=== PATIENT | female | born 1990 | race African-American/Black ===

== ENCOUNTER 2016-10-08 00:22 | Emergency (ER) | payer MEDICAID ==
--- NOTE | 2016-10-08 02:43 | ER Document Report ---
ED GI/ - General Chief Complaint: Abdominal Pain Stated Complaint: ABDOMINAL CRAMPING WITH Time seen by provider: 02:43 Mode of Arrival: Ambulatory Information source: Patient TRAVEL OUTSIDE OF THE [place] IN LAST 30 DAYS: No - HPI Patient complains to provider of: Abdominal pain, Onset: Other - 2-3 weeks Timing/Duration: Gradual, Waxing and waning Quality of pain: Achy, Dull Severity at maximum: Mild Severity in ED: Mild, Moderate Pain Level: 2 Location: Epigastric Vaginal bleeding (Compared to normal period): None Associated symptoms: Nausea Exacerbated by: Denies Relieved by: Denies Similar symptoms previously: Yes Recently seen / treated by doctor: Yes Notes: 10/08/16 03:06 Patient is a 26-year-old female who presents to the emergency room complaining of nausea with epigastric abdominal pain, states she was seen at urgent care approximately 3 weeks ago for this and was told she had a positive test, her symptoms have continued throughout the last few weeks, she did a home test 2 days ago and she said it was a very faint positive, she states she's been having some pinkish colored discharge but no actual vaginal bleeding , patient is a with previous miscarriage occurring at approximately 14 weeks gestation back in May 2016, last menstrual period was August 21 - Related Data Allergies/Adverse Reactions: Penicillins Allergy (Verified 10/08/16 00:27) Nausea Past Medical History - General Information source: Patient - Social History Smoking Status: Never Smoker Family History: CVA, DM, Malignancy - Past Medical History Cardiac Medical History: Reports: Hx Hypertension Denies: Hx Coronary Artery Disease, Hx Heart Attack Pulmonary Medical History: Denies: Hx Asthma, Hx Bronchitis, Hx COPD, Hx Pneumonia Neurological Medical History: Denies: Hx Cerebrovascular Accident, Hx Seizures Renal/ Medical History: Denies: Hx Peritoneal Dialysis Musculoskeltal Medical History: Denies Hx Arthritis, Reports Hx Musculoskeletal Trauma Skin Medical History: Reports Hx Eczema Psychiatric Medical History: Reports: Hx Bipolar Disorder Past Surgical History: Reports: Hx Dilation and Curettage - 2, Hx Gynecologic Surgery - D&C - Immunizations Immunizations up to date: Yes Hx Diphtheria, Pertussis, Tetanus Vaccination: Yes - 2009 Review of Systems - Review of Systems Constitutional: No symptoms reported EENT: No symptoms reported Cardiovascular: No symptoms reported Respiratory: No symptoms reported Gastrointestinal: See HPI Genitourinary: No symptoms reported Female Genitourinary: See HPI Musculoskeletal: No symptoms reported Skin: No symptoms reported Hematologic/Lymphatic: No symptoms reported Neurological/Psychological: No symptoms reported -: Yes All other systems reviewed and negative Physical Exam - Vital signs Vitals: Temp Pulse Resp BP Pulse Ox 97.9 F 63 16 113/95 H 100 10/08/16 00:28 10/08/16 00:28 10/08/16 00:28 10/08/16 00:10/08/16 00:28 Interpretation: Normal - General General appearance: Appears well, Alert - HEENT Head: Normocephalic, Atraumatic Eyes: Normal Pupils: PERRL - Respiratory Respiratory status: No respiratory distress Chest status: Nontender Breath sounds: Normal Chest palpation: Normal - Cardiovascular Rhythm: Regular Heart sounds: Normal auscultation Murmur: No - Abdominal Inspection: Normal Distension: No distension Bowel sounds: Normal Tenderness: Tender - Mild epigastric Organomegaly: No organomegaly - Back Back: Normal, Nontender - Extremities General upper extremity: Normal inspection, Nontender, Normal color, Normal ROM , Normal temperature General lower extremity: Normal inspection, Nontender, Normal color, Normal ROM , Normal temperature, Normal weight bearing. No: Neris's sign - Neurological Neuro grossly intact: Yes Cognition: Normal Orientation: AAOx4 Rubi Coma Scale Eye Opening: Spontaneous [place] Coma Scale Verbal: Oriented [place] Coma Scale Motor: Obeys Commands [place] Coma Scale Total: 15 Speech: Normal Motor strength normal: LUE, RUE, LLE, RLE Sensory: Normal - Psychological Associated symptoms: Normal affect, Normal mood - Skin Skin Temperature: Warm Skin Moisture: Dry Skin Color: Normal Course - Re-evaluation Re-evalutation: 10/08/16 03:45 Patient was informed of her lab results which included a negative serum test, she was advised to follow-up with a primary care provider or return if symptoms worsen, patient acknowledges understanding and agreement with this plan - Vital Signs Vital signs: Temp Pulse Resp BP Pulse Ox 97.9 F 63 16 113/95 H 100 10/08/16 00:28 10/08/16 00:28 10/08/16 00:28 10/08/16 00:28 10/08/16 00:28 - Laboratory Result Diagrams: 10/08/16 02:37 10/08/16 02:37 Laboratory results interpreted by me: 10/08/16 10/08/16 10/08/16 02:37 02:37 02:43 Hgb 11.6 L MCV 73 L MCH 23.2 L MCHC 31.7 L RDW 18.0 H Glucose 113 H Urine Protein 30 H Urine Ketones TRACE H Urine Ascorbic Acid 20 H Discharge - Discharge Clinical Impression: Abdominal pain Qualifiers: Abdominal location: epigastric Qualified Code(s): R10.13 - Epigastric pain Condition: Stable Disposition: HOME, SELF-CARE Instructions: Abdominal Pain ([facility]) Additional Instructions: Follow up with your primary care provider in one to 2 days. Return to the emergency room immediately if symptoms worsen or any additional concerns.
[2016-10-08 03:03] LABS: ABSOLUTE EOSINOPHILS # (AUTO) 0.3 10^3/uL (0.0-0.6); ABSOLUTE LYMPHOCYTES (AUTO) 2.1 10^3/uL (0.5-4.7); ABSOLUTE MONOCYTES (AUTO) 0.5 10^3/uL (0.1-1.4); ABSOLUTE NEUT (AUTO) 2.8 10^3/uL (1.7-8.2); BASOPHILS % (AUTO) 0.8 % (0-2); EOSINOPHILS % (AUTO) 4.7 % (0-6); HEMATOCRIT 36.6 % (36.0-47.0); HEMOGLOBIN 11.6 g/dL (12.0-15.5); HGB HCT DIFFERENCE -1.8; LYMPHOCYTES % (AUTO) 36.8 % (13-45); MEAN CORPUSCULAR HEMOGLOBIN 23.2 pg (27.0-33.4); MEAN CORPUSCULAR HGB CONC 31.7 g/dL (32.0-36.0); MEAN CORPUSCULAR VOLUME 73 fl (80-97); MONOCYTES % (AUTO) 9.4 % (3-13); RED BLOOD COUNT 5.01 10^6/uL (3.72-5.28); SEGMENTED NEUTROPHILS % (AUTO) 48.3 % (42-78); WHITE BLOOD COUNT 5.8 10^3/uL (4.0-10.5)
[2016-10-08 03:14] LABS: ALANINE AMINOTRANSFERASE 37 U/L (9-52); ALBUMIN 3.8 g/dL (3.5-5.0); ALKALINE PHOSPHATASE 82 U/L (38-126); ANION GAP 12 (5-19); ASPARTATE AMINO TRANSFERASE 22 U/L (14-36); BILIRUBIN,TOTAL 0.4 mg/dL (0.2-1.3); BLOOD UREA NITROGEN 13 mg/dL (7-20); CALCIUM 9.4 mg/dL (8.4-10.2); CARBON DIOXIDE 27 mmol/L (22-30); CHLORIDE 103 mmol/L (98-107); CREATININE RESULT 0.66 mg/dL (0.52-1.25); GLUCOSE 113 mg/dL (75-110); LIPASE 140.3 U/L (23-300); SODIUM 142.1 mmol/L (137-145); TOTAL PROTEIN 7.4 g/dL (6.3-8.2)
[2016-10-08 03:14] LABS: APPEARANCE,URINE SLIGHTLY-CLOUDY; BILIRUBIN,URINE NEGATIVE (NEGATIVE); GLUCOSE, URINE NEGATIVE (NEGATIVE); KETONES,URINE TRACE mg/dL (NEGATIVE); LEUKOCYTE ESTERASE,URINE NEGATIVE (NEGATIVE); NITRITE,URINE NEGATIVE (NEGATIVE); PROTEIN,URINE 30 mg/dL (NEGATIVE); UROBILINOGEN,URINE NEGATIVE mg/dL (<2.0)
[2016-10-08 03:58] VITALS: BP 120/64
== END 2016-10-08 03:59 | disposition home or self-care (01) ==
LOC: ER 00:22
DX: R10.13 Epigastric pain (principal); R11.0 Nausea; I10 Essential (primary) hypertension
CPT/HCPCS: 36415; 80053; 81001; 83690; 84702; 85025; 87086; 99284

== ENCOUNTER 2016-10-10 20:31 | Emergency (ER) | payer MEDICAID ==
--- NOTE | 2016-10-10 20:37 | ER Document Report ---
ED Medical Screen (RME) - General Stated Complaint: ABDOMINAL PAIN Time seen by provider: 20:35 Mode of Arrival: Medic Information source: Patient TRAVEL OUTSIDE OF THE [place] IN LAST 30 DAYS: No - HPI Patient complains to provider of: PREG VAGINAL BLEEDING Onset: This morning Onset/Duration: Sudden Quality of pain: Sharp Severity: Moderate Pain Level: 4 Associated Symptoms: Abdominal pain, Vaginal bleeding Exacerbated by: Denies Relieved by: Denies Similar symptoms previously: No Recently seen / treated by doctor: No - 16 WEEKS - Related Data Smoking: Non-smoker Frequency of alcohol use: None Drug Abuse: None Pertinent History: DM Allergies/Adverse Reactions: Penicillins Allergy (Verified 10/08/16 00:27) Nausea Past Medical History - Past Medical History Cardiac Medical History: Reports: Hx Hypertension Denies: Hx Coronary Artery Disease, Hx Heart Attack Pulmonary Medical History: Denies: Hx Asthma, Hx Bronchitis, Hx COPD, Hx Pneumonia Neurological Medical History: Denies: Hx Cerebrovascular Accident, Hx Seizures Renal/ Medical History: Denies: Hx Peritoneal Dialysis Musculoskeltal Medical History: Denies Hx Arthritis, Reports Hx Musculoskeletal Trauma Skin Medical History: Reports Hx Eczema Psychiatric Medical History: Reports: Hx Bipolar Disorder Past Surgical History: Reports: Hx Dilation and Curettage - 2, Hx Gynecologic Surgery - D&C - Immunizations Immunizations up to date: Yes Hx Diphtheria, Pertussis, Tetanus Vaccination: Yes - 2009
[2016-10-10 20:39] VITALS: BP 121/73
[2016-10-10 20:58] LABS: ABSOLUTE EOSINOPHILS # (AUTO) 0.2 10^3/uL (0.0-0.6); ABSOLUTE LYMPHOCYTES (AUTO) 1.7 10^3/uL (0.5-4.7); ABSOLUTE MONOCYTES (AUTO) 0.7 10^3/uL (0.1-1.4); ABSOLUTE NEUT (AUTO) 2.8 10^3/uL (1.7-8.2); BASOPHILS % (AUTO) 0.7 % (0-2); EOSINOPHILS % (AUTO) 4.4 % (0-6); HEMATOCRIT 37.8 % (36.0-47.0); HEMOGLOBIN 11.9 g/dL (12.0-15.5); HGB HCT DIFFERENCE -2.1; LYMPHOCYTES % (AUTO) 30.4 % (13-45); MEAN CORPUSCULAR HGB CONC 31.6 g/dL (32.0-36.0); MEAN CORPUSCULAR VOLUME 73 fl (80-97); MONOCYTES % (AUTO) 12.8 % (3-13); RED CELL DISTRIBUTION WIDTH 18.3 % (11.5-14.0); SEGMENTED NEUTROPHILS % (AUTO) 51.7 % (42-78); WHITE BLOOD COUNT 5.4 10^3/uL (4.0-10.5)
[2016-10-10 21:02] LABS: APPEARANCE,URINE CLEAR; BILIRUBIN,URINE NEGATIVE (NEGATIVE); GLUCOSE, URINE NEGATIVE (NEGATIVE); KETONES,URINE NEGATIVE (NEGATIVE); LEUKOCYTE ESTERASE,URINE NEGATIVE (NEGATIVE); NITRITE,URINE NEGATIVE (NEGATIVE); PROTEIN,URINE NEGATIVE (NEGATIVE); UROBILINOGEN,URINE NEGATIVE mg/dL (<2.0)
[2016-10-10 21:08] LABS: ALANINE AMINOTRANSFERASE 34 U/L (9-52); ALBUMIN 4.5 g/dL (3.5-5.0); ALKALINE PHOSPHATASE 76 U/L (38-126); ANION GAP 13 (5-19); ASPARTATE AMINO TRANSFERASE 23 U/L (14-36); BILIRUBIN,TOTAL 0.5 mg/dL (0.2-1.3); BLOOD UREA NITROGEN 16 mg/dL (7-20); CALCIUM 9.8 mg/dL (8.4-10.2); CARBON DIOXIDE 25 mmol/L (22-30); CHLORIDE 103 mmol/L (98-107); CREATININE RESULT 0.85 mg/dL (0.52-1.25); GLUCOSE 80 mg/dL (75-110); POTASSIUM 4.6 mmol/L (3.6-5.0); SODIUM 140.6 mmol/L (137-145); TOTAL PROTEIN 7.7 g/dL (6.3-8.2)
== END 2016-10-10 21:16 | disposition left against medical advice (07) ==
LOC: ER 20:31
DX: O26.892 Other specified pregnancy related conditions, second trimester (principal); R10.9 Unspecified abdominal pain; O20.9 Hemorrhage in early pregnancy, unspecified; O16.2 Unspecified maternal hypertension, second trimester; Z3A.16 16 weeks gestation of pregnancy; Z53.20 Procedure and treatment not carried out because of patient's decision for unspecified reasons; Z88.0 Allergy status to penicillin
CPT/HCPCS: 36415; 80053; 81001; 84702; 85025; 86900; 86901; 99281

== ENCOUNTER 2016-11-29 09:14 | Emergency (ER) | payer MEDICAID ==
[2016-11-29 09:20] VITALS: BP 113/68
--- NOTE | 2016-11-29 10:11 | ER Document Report ---
ED Skin Rash/Insect Bite/Abscs - General Chief Complaint: Skin Problem Stated Complaint: SKIN PROBLEM Notes: The patient is a 26-year-old female who presents with a pruritic right arm that started after a [facility] resident at her work with scabies grabbed her right arm. Over the past day, she is having increased pruritus. She denies fevers, numbness, tingling, oral involvement or open wounds. TRAVEL OUTSIDE OF THE [place] IN LAST 30 DAYS: No - Related Data Allergies/Adverse Reactions: Penicillins Allergy (Verified 10/08/16 00:27) Nausea Past Medical History - General Information source: Patient - Social History Smoking Status: Never Smoker Frequency of alcohol use: Occasional Drug Abuse: None Family History: CVA, DM, Malignancy Patient has suicidal ideation: No Patient has homicidal ideation: No - Past Medical History Cardiac Medical History: Reports: Hx Hypertension Denies: Hx Coronary Artery Disease, Hx Heart Attack Pulmonary Medical History: Denies: Hx Asthma, Hx Bronchitis, Hx COPD, Hx Pneumonia Neurological Medical History: Denies: Hx Cerebrovascular Accident, Hx Seizures Renal/ Medical History: Denies: Hx Peritoneal Dialysis Musculoskeltal Medical History: Denies Hx Arthritis, Reports Hx Musculoskeletal Trauma Skin Medical History: Reports Hx Eczema Psychiatric Medical History: Reports: Hx Bipolar Disorder Past Surgical History: Reports: Hx Dilation and Curettage - 2, Hx Gynecologic Surgery - D&C - Immunizations Immunizations up to date: Yes Hx Diphtheria, Pertussis, Tetanus Vaccination: Yes - 2009 Review of Systems - Review of Systems Notes: REVIEW OF SYSTEMS: CONSTITUTIONAL: -fevers, -chills EENT: -eye pain, -difficulty swallowing, -nasal congestion CARDIOVASCULAR:-chest pain, -syncope. RESPIRATORY: -cough, -SOB GASTROINTESTINAL: -abdominal pain, - nausea, -vomiting, -diarrhea GENITOURINARY: -dysuria, -hematuria MUSCULOSKELETAL: -back pain, -neck pain SKIN: +pruritic rash HEMATOLOGIC: -easy bruising or bleeding. LYMPHATIC: -swollen, enlarged glands. NEUROLOGICAL: -altered mental status or loss of consciousness, -headache, - neurologic symptoms PSYCHIATRIC: -anxiety, -depression. ALL OTHER SYSTEMS REVIEWED AND NEGATIVE. Physical Exam - Vital signs Vitals: Temp Pulse Resp BP Pulse Ox 98.5 F 89 16 113/68 98 11/29/16 09:18 11/29/16 09:18 11/29/16 09:18 11/29/16 09:18 11/29/16 09:18 - Notes Notes: PHYSICAL EXAMINATION: GENERAL: Well-appearing, well-nourished and in no acute distress. HEAD: Atraumatic, normocephalic. EYES: Pupils equal round and reactive to light, extraocular movements intact, sclera anicteric, conjunctiva are normal. ENT: nares patent, oropharynx clear without exudates. Moist mucous membranes. NECK: Normal range of motion, supple without lymphadenopathy LUNGS: Breath sounds clear to auscultation bilaterally and equal. No wheezes rales or rhonchi. HEART: Regular rate and rhythm without murmurs ABDOMEN: Soft, nontender, normoactive bowel sounds. No guarding, no rebound. No masses appreciated. EXTREMITIES: Normal range of motion, no pitting or edema. No cyanosis. NEUROLOGICAL: Cranial nerves grossly intact. Normal speech, normal gait. Normal sensory, motor, and reflex exams. PSYCH: Normal mood, normal affect. SKIN: Burrowing between right fingers, pruritic papules on arm Course - Re-evaluation Re-evalutation: With recent scabies exposure and pruritus, will treat with permethrin. Instructed patient about use and follow-up with her primary care physician. Given strict return precautions and she understands. - Vital Signs Vital signs: Temp Pulse Resp BP Pulse Ox 98.5 F 89 16 113/68 98 11/29/16 09:18 11/29/16 09:18 11/29/16 09:18 11/29/16 09:18 11/29/16 09:18 Discharge - Discharge Clinical Impression: Scabies exposure Condition: Good Disposition: HOME, SELF-CARE Additional Instructions: Used the permethrin as instructed. Reuse it in one week if the rash does not resolve. Use [id number] cetirizine for any itchiness. Scabies Your exam suggests the presence of scabies, which are microscopic parasites of the skin. These mites lucian through the skin, causing severe itching. The mite can be spread to other persons by skin contact. All clothing, towels, and bedding should be washed in very hot water, set aside for a week, then washed again. You should apply scabies-killing lotion from the neck down, then wash it off after 12 hours. You may need medication for itching, as the itch persists for many days after the mites have been killed. All family members and close personal contacts should be examined. Repeat treatment may be necessary if the infestation is not eliminated with a single treatment. Call the doctor if you develop increasing swelling and redness, red streaks , tender lumps, fever, or drainage from a skin sore. Prescriptions: Permethrin [Acticin 5% Cream 60 gm] 1 applic TP ONCE PRN 2 Days PRN Reason: Referrals: MICHAEL MUNOZ MD [Primary Care Provider] - Follow up as needed
== END 2016-11-29 10:36 | disposition home or self-care (01) ==
LOC: ER 09:14
DX: Z20.7 Contact with and (suspected) exposure to pediculosis, acariasis and other infestations (principal); L29.9 Pruritus, unspecified; I10 Essential (primary) hypertension
CPT/HCPCS: 99283

== ENCOUNTER 2017-01-28 02:05 | Emergency (ER) | payer MEDICAID ==
[2017-01-28 02:30] VITALS: BP 118/74
[2017-01-28 04:19] LABS: APPEARANCE,URINE CLEAR; BILIRUBIN,URINE NEGATIVE (NEGATIVE); GLUCOSE, URINE NEGATIVE (NEGATIVE); KETONES,URINE NEGATIVE (NEGATIVE); LEUKOCYTE ESTERASE,URINE NEGATIVE (NEGATIVE); NITRITE,URINE NEGATIVE (NEGATIVE); PROTEIN,URINE NEGATIVE (NEGATIVE); URINE SPECIFIC GRAVITY 1.033; UROBILINOGEN,URINE NEGATIVE mg/dL (<2.0)
--- NOTE | 2017-01-28 05:30 | ER Document Report ---
ED General - General Chief Complaint: Hemorrhoids Stated Complaint: NAUSEA POSSIBLE HEMORRHOID Time Seen by Provider: 01/28/17 03:08 Notes: Patient is a 27-year-old female who presents with complaint of pain in the rectal area. Patient says that she has had hemorrhoids in the past and this feels maybe this could be a hemorrhoid. This been ongoing for over a week. She first noticed the pain when she was straining to have a bowel movement. No blood. No fevers. Patient's other complaint is that she has had some intermittent nausea for 2 weeks. She is over a month late on menstrual period. She has not checked a test. She has had no dysuria. No abnormal vaginal discharge. No abdominal pain. TRAVEL OUTSIDE OF THE [place] IN LAST 30 DAYS: No - Related Data Allergies/Adverse Reactions: Penicillins Allergy (Verified 10/08/16 00:27) Nausea Past Medical History - Social History Smoking Status: Unknown if Ever Smoked Frequency of alcohol use: None Drug Abuse: None Family History: CVA, DM, Malignancy Patient has suicidal ideation: No Patient has homicidal ideation: No - Past Medical History Cardiac Medical History: Reports: Hx Hypertension Denies: Hx Coronary Artery Disease, Hx Heart Attack Pulmonary Medical History: Denies: Hx Asthma, Hx Bronchitis, Hx COPD, Hx Pneumonia Neurological Medical History: Denies: Hx Cerebrovascular Accident, Hx Seizures Renal/ Medical History: Denies: Hx Peritoneal Dialysis Musculoskeltal Medical History: Denies Hx Arthritis, Reports Hx Musculoskeletal Trauma Skin Medical History: Reports Hx Eczema Psychiatric Medical History: Reports: Hx Bipolar Disorder Past Surgical History: Reports: Hx Dilation and Curettage - 2, Hx Gynecologic Surgery - D&C - Immunizations Immunizations up to date: Yes Hx Diphtheria, Pertussis, Tetanus Vaccination: Yes - 2009 Review of Systems - Review of Systems Notes: My Normal Review Basic REVIEW OF SYSTEMS: CONSTITUTIONAL : Denies fever, chills, or sweats. Denies recent illness. RESPIRATORY: Denies cough, cold, or chest congestion. Denies shortness of breath, difficulty breathing, or wheezing. GASTROINTESTINAL: Denies abdominal pain. Some nausea. Rectal pain GENITOURINARY: Denies difficulty urinating, painful urination, burning, frequency, or blood in urine. MUSCULOSKELETAL: Denies neck or back pain or joint pain or swelling. SKIN: Denies rash or skin lesions. NEUROLOGICAL: Denies altered mental status or loss of consciousness. Denies headache. Denies weakness or paralysis or loss of use of either side. Denies problems with gait or speech. Denies sensory or motor loss. ALL OTHER SYSTEMS REVIEWED AND NEGATIVE. Physical Exam - Vital signs Vitals: Temp Pulse Resp BP Pulse Ox 98.2 F 81 18 118/74 98 01/28/17 02:27 01/28/17 02:01/28/17 02:01/28/17 02:01/28/17 02:27 - Notes Notes: General Appearance: Well nourished, alert, cooperative, no acute distress, no obvious discomfort. Vitals: reviewed, See vital signs table. Eyes: PERRL, EOMI, Conjuctiva clear Lungs: No wheezing, No rales, No rhonci, No accessory muscle use, good air exchange bilaterally. Heart: Normal rate, Regular rythm, No murmur, no rub Abdomen: Normal BS, soft, No rigidity, No abdominal tenderness, No guarding, no rebound, no abdominal masses, no organomegaly Rectal exam: Patient has an anal fissure. She has 1 small hemorrhoid. Hemorrhoid is not thrombosed or bulging. Pain most likely is coming from the fissure. Extremities: strength 5/5 in all extremities, good pulses in all extremities, no swelling or tenderness in the extremities, no edema. Rectal exam: Patient has an anal fissure. Skin: warm, dry, appropriate color, no rash Neuro: speech clear, oriented x 3, normal affect, responds appropriately to questions. Course - Re-evaluation Re-evalutation: 01/28/17 05:25 I went by the patient's room to review her lab results with her. She is no longer in the room. I asked the nurse she is seen here. The nurse has not seen her for a while now as well. I suspect the patient has eloped. I will recheck the room again in 10 minutes to see if the patient has returned. 01/28/17 05:53 Patient has still not returned to the room. I assume the patient has eloped. - Vital Signs Vital signs: Temp Pulse Resp BP Pulse Ox 98.2 F 81 18 118/74 98 01/28/17 02:27 01/28/17 02:01/28/17 02:01/28/17 02:27 01/28/17 02:27 - Laboratory Laboratory results interpreted by me: 01/28/17 04:00 Urine Ascorbic Acid 20 H Discharge - Discharge Clinical Impression: Anal fissure, Nausea Disposition: ELOPED
== END 2017-01-28 05:50 | disposition left against medical advice (07) ==
LOC: ER 02:05
DX: K60.2 Anal fissure, unspecified (principal); R11.0 Nausea; K64.9 Unspecified hemorrhoids; Z53.21 Procedure and treatment not carried out due to patient leaving prior to being seen by health care provider; Z80.9 Family history of malignant neoplasm, unspecified
CPT/HCPCS: 81001; 81025; 99281

== ENCOUNTER 2017-03-17 03:22 | Emergency (ER) | payer MEDICAID ==
[2017-03-17] MEDS ORDERED: ASPIRIN 81 MG TABLET, CHEWABLE PO ONE (04:49)
[2017-03-17 05:18] LABS: ABSOLUTE BASOPHILS # (AUTO) 0.1 10^3/uL (0.0-0.2); ABSOLUTE EOSINOPHILS # (AUTO) 0.2 10^3/uL (0.0-0.6); ABSOLUTE LYMPHOCYTES (AUTO) 1.6 10^3/uL (0.5-4.7); ABSOLUTE MONOCYTES (AUTO) 0.7 10^3/uL (0.1-1.4); ABSOLUTE NEUT (AUTO) 3.9 10^3/uL (1.7-8.2); BASOPHILS % (AUTO) 0.9 % (0-2); EOSINOPHILS % (AUTO) 2.5 % (0-6); HEMATOCRIT 37.9 % (36.0-47.0); HEMOGLOBIN 12.2 g/dL (12.0-15.5); HGB HCT DIFFERENCE -1.3; LYMPHOCYTES % (AUTO) 24.9 % (13-45); MEAN CORPUSCULAR HEMOGLOBIN 23.2 pg (27.0-33.4); MEAN CORPUSCULAR HGB CONC 32.1 g/dL (32.0-36.0); MEAN CORPUSCULAR VOLUME 72 fl (80-97); MONOCYTES % (AUTO) 11.5 % (3-13); RED BLOOD COUNT 5.24 10^6/uL (3.72-5.28); RED CELL DISTRIBUTION WIDTH 18.9 % (11.5-14.0); SEGMENTED NEUTROPHILS % (AUTO) 60.2 % (42-78); WHITE BLOOD COUNT 6.5 10^3/uL (4.0-10.5)
[2017-03-17 05:33] LABS: ALANINE AMINOTRANSFERASE 37 U/L (9-52); ALBUMIN 3.8 g/dL (3.5-5.0); ALKALINE PHOSPHATASE 84 U/L (38-126); ANION GAP 9 (5-19); ASPARTATE AMINO TRANSFERASE 22 U/L (14-36); BILIRUBIN,DIRECT 0.2 mg/dL (0.0-0.4); BILIRUBIN,TOTAL 0.4 mg/dL (0.2-1.3); BLOOD UREA NITROGEN 13 mg/dL (7-20); CALCIUM 9.2 mg/dL (8.4-10.2); CARBON DIOXIDE 25 mmol/L (22-30); CHLORIDE 106 mmol/L (98-107); CREATINE KINASE 133 U/L (30-135); CREATININE RESULT 0.59 mg/dL (0.52-1.25); GLUCOSE 85 mg/dL (75-110); SODIUM 139.6 mmol/L (137-145); TOTAL PROTEIN 7.2 g/dL (6.3-8.2)
[2017-03-17 05:38] LABS: CREATINE KINASE MB 0.42 ng/mL (<4.55)
[2017-03-17 05:43] LABS: TROPONIN I < 0.012 ng/mL
--- NOTE | 2017-03-17 05:56 | RADIOLOGY REPORT (SQ) ---
EXAM DESCRIPTION: CHEST SINGLE VIEW COMPLETED DATE/TIME: 03/17/2017 5:39 am REASON FOR STUDY: chest pain COMPARISON: None. EXAM PARAMETERS: NUMBER OF VIEWS: One view. TECHNIQUE: Single frontal radiographic view of the chest acquired. RADIATION DOSE: NA LIMITATIONS: None. FINDINGS: LUNGS AND PLEURA: No opacities, masses or pneumothorax. No pleural effusion. Moderate kane g volumes. MEDIASTINUM AND HILAR STRUCTURES: No masses. Contour normal. HEART AND VASCULAR STRUCTURES: Heart normal in size. Normal vasculature. BONES: No acute findings. HARDWARE: None in the chest. OTHER: No other significant finding. IMPRESSION: No acute cardiopulmonary findings. TECHNICAL DOCUMENTATION: JOB ID: [id number]
[2017-03-17] MEDS ORDERED: NAPROXEN 250 MG TABLET PO ONE (06:22)
--- NOTE | 2017-03-17 06:24 | ER Document Report ---
ED General - General Chief Complaint: Chest Pain Stated Complaint: CHEST PAIN Time Seen by Provider: 03/17/17 06:10 Mode of Arrival: Ambulatory Information source: Patient Notes: 27-year-old female presents with complaints of sharp chest pain. Patient notes she has been having chest pain intermittently over the past few years, notes that it hurts when she touches her chest. Patient denies any fevers or chills denies any shortness breath difficulty breathing. Patient denies any DVT or PE risk factors TRAVEL OUTSIDE OF THE [place] IN LAST 30 DAYS: No - HPI Onset: Other Onset/Duration: Intermittent Quality of pain: Sharp Severity: Mild Pain Level: 1 Associated symptoms: Chest pain Exacerbated by: Denies Relieved by: Denies Similar symptoms previously: Yes Recently seen / treated by doctor: No - Related Data Allergies/Adverse Reactions: Penicillins Allergy (Verified 10/08/16 00:27) Nausea Past Medical History - Social History Smoking Status: Never Smoker Cigarette use (# per day): No Chew tobacco use (# tins/day): No Smoking Education Provided: No Family History: CVA, DM, Malignancy Patient has suicidal ideation: No Patient has homicidal ideation: No - Past Medical History Cardiac Medical History: Reports: Hx Hypertension Denies: Hx Coronary Artery Disease, Hx Heart Attack Pulmonary Medical History: Denies: Hx Asthma, Hx Bronchitis, Hx COPD, Hx Pneumonia Neurological Medical History: Denies: Hx Cerebrovascular Accident, Hx Seizures Renal/ Medical History: Denies: Hx Peritoneal Dialysis Musculoskeltal Medical History: Denies Hx Arthritis, Reports Hx Musculoskeletal Trauma Skin Medical History: Reports Hx Eczema Psychiatric Medical History: Reports: Hx Bipolar Disorder Past Surgical History: Reports: Hx Dilation and Curettage - 2, Hx Gynecologic Surgery - D&C - Immunizations Immunizations up to date: Yes Hx Diphtheria, Pertussis, Tetanus Vaccination: Yes - 2009 Review of Systems - Review of Systems Notes: REVIEW OF SYSTEMS: CONSTITUTIONAL : Denies fever, chills, or sweats. Denies recent illness. EENT: Denies eye, ear, throat, or mouth pain or symptoms. Denies nasal or sinus congestion or discharge. Denies throat, tongue, or mouth swelling or difficulty swallowing. CARDIOVASCULAR: Admits to sharp chest pain RESPIRATORY: Denies cough, cold, or chest congestion. Denies shortness of breath, difficulty breathing, or wheezing. GASTROINTESTINAL: Denies abdominal pain or distention. Denies nausea, vomiting , or diarrhea. Denies blood in vomitus, stools, or per rectum. Denies black, tarry stools. Denies constipation. GENITOURINARY: Denies difficulty urinating, painful urination, burning, frequency, blood in urine, or discharge. FEMALE GENITOURINARY: Denies vaginal bleeding, heavy or abnormal periods, irregular periods. Denies vaginal discharge or odor. MUSCULOSKELETAL: Denies back or neck pain or stiffness. Denies joint pain or swelling. SKIN: Denies rash, lesions or sores. HEMATOLOGIC : Denies easy bruising or bleeding. LYMPHATIC: Denies swollen, enlarged glands. NEUROLOGICAL: Denies confusion or altered mental status. Denies passing out or loss of consciousness. Denies dizziness or lightheadedness. Denies headache. Denies weakness or paralysis or loss of use of either side. Denies problems with gait or speech. Denies sensory loss, numbness, or tingling. Denies seizures. PSYCHIATRIC: Denies anxiety or stress. Denies depression, suicidal ideation, or homicidal ideation. ALL OTHER SYSTEMS REVIEWED AND NEGATIVE. PHYSICAL EXAMINATION: GENERAL: Well-appearing, well-nourished and in no acute distress. HEAD: Atraumatic, normocephalic. EYES: Pupils equal round and reactive to light, extraocular movements intact, conjunctiva are normal. ENT: Nares patent, oropharynx clear without exudates. Moist mucous membranes. NECK: Normal range of motion, supple without lymphadenopathy LUNGS: Breath sounds clear to auscultation bilaterally and equal. No wheezes rales or rhonchi. HEART: Regular rate and rhythm without murmurs chest pain is easily reproducible on palpation ABDOMEN: Soft, nontender, nondistended abdomen. No guarding, no rebound. No masses appreciated. Female : deferred Musculoskeletal: Normal range of motion, no pitting or edema. No cyanosis. NEUROLOGICAL: Cranial nerves grossly intact. Normal speech, normal gait. Normal sensory, motor exams PSYCH: Normal mood, normal affect. SKIN: Warm, Dry, normal turgor, no rashes or lesions noted. Dictation was performed using [employer] voice recognition software Physical Exam - Vital signs Vitals: Temp Pulse Resp BP Pulse Ox 98.3 F 82 18 109/69 99 03/17/17 03:32 03/17/17 03:32 03/17/17 03:32 03/17/17 03:32 03/17/17 03:32 Course - Re-evaluation Re-evalutation: 03/17/17 11:01 Chest pain is easily reproducible, patient otherwise well-appearing no distress , patient will be treated with anti-inflammatories otherwise well-appearing. Patient notes she has taken Motrin in the past with improvement of her symptoms After performing a Medical Screening Examination, I estimate there is LOW risk for RUPTURED ESOPHAGUS, PNEUMOTHORAX, PULMONARY EMBOLISM, ACUTE CORONARY SYNDROME, OR THORACIC AORTIC DISSECTION, thus I consider the discharge disposition reasonable. I have reevaluated this patient multiple times and no significant life threatening changes are noted. The patient and I have discussed the diagnosis and risks, and we agree with discharging home with close follow-up. We also discussed returning to the Emergency Department immediately if new or worsening symptoms occur. We have discussed the symptoms which are most concerning (e.g., bloody sputum, worsening pain or shortness of breath) that necessitate immediate return. - Vital Signs Vital signs: Temp Pulse Resp BP Pulse Ox 98.3 F 82 17 114/58 L 98 03/17/17 03:32 03/17/17 03:32 03/17/17 07:03 03/17/17 07:03 03/17/17 07:03 - Laboratory Result Diagrams: 03/17/17 05:02 03/17/17 05:02 Laboratory results interpreted by me: 03/17/17 05:02 MCV 72 L MCH 23.2 L RDW 18.9 H - EKG Interpretation by Mn EKG shows normal: Sinus rhythm, [place], Intervals, QRS Complexes, ST-T Waves Discharge - Discharge Clinical Impression: Chest wall pain Condition: Stable Disposition: HOME, SELF-CARE Instructions: Chest Wall Pain ([facility]) Prescriptions: Naproxen 500 mg PO BID #20 tablet Referrals: URIEL PEREZ MD [ACTIVE STAFF] - Follow up in 3-5 days
[2017-03-17 07:12] VITALS: BP 114/58
--- NOTE | 2017-03-17 09:17 | EKG REPORT ---
SEVERITY:- OTHERWISE NORMAL ECG - SINUS ARRHYTHMIA, RATE 64-88 : Confirmed by: Papo Concepcion MD 17-Mar-2017 09:16:43
== END 2017-03-17 07:12 | disposition home or self-care (01) ==
LOC: ER 03:22
DX: R07.89 Other chest pain (principal); I10 Essential (primary) hypertension; Z88.0 Allergy status to penicillin; Z82.49 Family history of ischemic heart disease and other diseases of the circulatory system
CPT/HCPCS: 93005; 99285; 36415; 82553; 82550; 85025; 80053; 84484; 71010; 93010; J3490

== ENCOUNTER 2017-05-18 23:25 | Emergency (ER) | payer SELFPAY ==
[2017-05-18 23:44] VITALS: BP 112/62
[2017-05-19 00:06] LABS: ABSOLUTE EOSINOPHILS # (AUTO) 0.2 10^3/uL (0.0-0.6); ABSOLUTE LYMPHOCYTES (AUTO) 1.7 10^3/uL (0.5-4.7); ABSOLUTE MONOCYTES (AUTO) 0.6 10^3/uL (0.1-1.4); ABSOLUTE NEUT (AUTO) 3.5 10^3/uL (1.7-8.2); BASOPHILS % (AUTO) 0.7 % (0-2); EOSINOPHILS % (AUTO) 3.5 % (0-6); HEMATOCRIT 37.6 % (36.0-47.0); HEMOGLOBIN 12.3 g/dL (12.0-15.5); HGB HCT DIFFERENCE -0.7; LYMPHOCYTES % (AUTO) 27.8 % (13-45); MEAN CORPUSCULAR HGB CONC 32.8 g/dL (32.0-36.0); MEAN CORPUSCULAR VOLUME 76 fl (80-97); MONOCYTES % (AUTO) 10.2 % (3-13); RED BLOOD COUNT 4.93 10^6/uL (3.72-5.28); RED CELL DISTRIBUTION WIDTH 17.8 % (11.5-14.0); SEGMENTED NEUTROPHILS % (AUTO) 57.8 % (42-78)
[2017-05-19 01:01] LABS: APPEARANCE,URINE SLIGHTLY-CLOUDY; BILIRUBIN,URINE NEGATIVE (NEGATIVE); GLUCOSE, URINE NEGATIVE (NEGATIVE); KETONES,URINE NEGATIVE (NEGATIVE); LEUKOCYTE ESTERASE,URINE NEGATIVE (NEGATIVE); NITRITE,URINE NEGATIVE (NEGATIVE); PROTEIN,URINE NEGATIVE (NEGATIVE); URINE SPECIFIC GRAVITY 1.031; UROBILINOGEN,URINE NEGATIVE mg/dL (<2.0)
--- NOTE | 2017-05-19 01:43 | ER Document Report ---
ED GI/ - General Chief Complaint: Vaginal Bleeding Stated Complaint: VAGINAL BLEEDING,WEAKNESS Time Seen by Provider: 05/19/17 01:30 Notes: Patient is a 27-year-old female comes emergency department for chief complaint of heavy vaginal bleeding. She states she has been bleeding for 3 weeks straight. She states she has had irregular periods ever since she had a D&C last year after a miscarriage. She states she is going through about 6 pads daily. She is not on any daily medications. She denies any surgeries otherwise. She denies fever, vomiting, vaginal discharge, STD exposure, she reports some cramping in her abdomen but she denies current abdominal pain. TRAVEL OUTSIDE OF THE [place] IN LAST 30 DAYS: No - Related Data Allergies/Adverse Reactions: Penicillins Allergy (Verified 05/18/17 23:36) Nausea Past Medical History - General Information source: Patient - Social History Smoking Status: Never Smoker Frequency of alcohol use: None Drug Abuse: None Lives with: Family Family History: CVA, DM, Malignancy - Past Medical History Cardiac Medical History: Reports: Hx Hypertension Denies: Hx Coronary Artery Disease, Hx Heart Attack Pulmonary Medical History: Denies: Hx Asthma, Hx Bronchitis, Hx COPD, Hx Pneumonia Neurological Medical History: Denies: Hx Cerebrovascular Accident, Hx Seizures Renal/ Medical History: Denies: Hx Peritoneal Dialysis Musculoskeltal Medical History: Denies Hx Arthritis, Reports Hx Musculoskeletal Trauma Skin Medical History: Reports Hx Eczema Psychiatric Medical History: Reports: Hx Bipolar Disorder Past Surgical History: Reports: Hx Dilation and Curettage - 2, Hx Gynecologic Surgery - D&C - Immunizations Immunizations up to date: Yes Hx Diphtheria, Pertussis, Tetanus Vaccination: Yes - 2009 Review of Systems - Review of Systems Constitutional: No symptoms reported EENT: No symptoms reported Cardiovascular: No symptoms reported Respiratory: No symptoms reported Gastrointestinal: See HPI Genitourinary: See HPI Female Genitourinary: See HPI Musculoskeletal: No symptoms reported Skin: No symptoms reported Hematologic/Lymphatic: No symptoms reported Neurological/Psychological: No symptoms reported Physical Exam - Vital signs Vitals: Temp Pulse Resp BP Pulse Ox 98.6 F 87 18 112/62 98 05/18/17 23:40 05/18/17 23:40 05/18/17 23:40 05/18/17 23:40 05/18/17 23:40 Interpretation: Normal - General General appearance: Appears well, Alert In distress: None - HEENT Head: Normocephalic, Atraumatic Eyes: Normal Pupils: PERRL - Respiratory Respiratory status: No respiratory distress Chest status: Nontender Breath sounds: Normal Chest palpation: Normal - Cardiovascular Rhythm: Regular Heart sounds: Normal auscultation Murmur: No - Abdominal Inspection: Normal Distension: No distension Bowel sounds: Normal Tenderness: Nontender. No: Tender, Guarding Organomegaly: No organomegaly - Back Back: Normal, Nontender - Extremities General upper extremity: Normal inspection, Nontender, Normal color, Normal ROM , Normal temperature General lower extremity: Normal inspection, Nontender, Normal color, Normal ROM , Normal temperature, Normal weight bearing. No: Neris's sign - Neurological Neuro grossly intact: Yes Cognition: Normal Orientation: AAOx4 [place] Coma Scale Eye Opening: Spontaneous [place] Coma Scale Verbal: Oriented Rubi Coma Scale Motor: Obeys Commands Rubi Coma Scale Total: 15 Speech: Normal Motor strength normal: LUE, RUE, LLE, RLE Sensory: Normal - Psychological Associated symptoms: Normal affect, Normal mood - Skin Skin Temperature: Warm Skin Moisture: Dry Skin Color: Normal Course - Re-evaluation Re-evalutation: CBC, chemistry, urinalysis are generally unremarkable. HCG is negative. Patient has a soft abdomen on examination. No tachycardia or hypotension. She does not appear to be in distress. Ultrasound other abnormality. Showing enlarged uterine lining suggestive of either endometrial hyperplasia, neoplasm, or no concerning cysts or signs of torsion. No other concerning abnormalities. I discussed with patient. Patient already is established with [facility]. Discussed close [facility] [facility] [facility] [facility] follow-up, discussed workup in detail. After discussion agreed to place patient on Sprintec to help control her symptoms in the meantime. Discussed with Dr. Acevedo. Patient left without her paperwork or prescription, I spoke to her on the phone , she states she is coming back for them. - Vital Signs Vital signs: Temp Pulse Resp BP Pulse Ox 98.6 F 87 18 112/62 98 05/18/17 23:40 05/18/17 23:40 05/18/17 23:40 05/18/17 23:40 05/18/17 23:40 - Laboratory Result Diagrams: 05/18/17 23:55 05/18/17 23:55 Laboratory results interpreted by me: 05/18/17 05/19/17 23:55 00:40 MCV 76 L MCH 25.0 L RDW 17.8 H Urine Blood SMALL H Discharge - Discharge Clinical Impression: Vaginal bleeding Condition: Stable Disposition: HOME, SELF-CARE Additional Instructions: Your ultrasound shows thickened lining of the uterus, this could be endometrial hyperplasia, worst-case scenario it could be an early cancer form which could develop or even spread. Please follow-up with the referral placed in the next few days to have this further evaluated and treated. Because of your heavy bleeding, I recommend taking the prescribed medication Return to the emergency department for any concerning or worsening symptoms including worsening bleeding, increased pain, fever, passing out, etc. Prescriptions: Norgestimate-Ethinyl Estradiol [Sprintec 28 Day Tablet] 1 each PO ASDIR PRN #56 tablet PRN Reason: Forms: Return to Work Referrals: [facility] [Provider Group] - Follow up in 3-5 days
[2017-05-19 02:08] LABS: ALANINE AMINOTRANSFERASE 32 U/L (9-52); ALKALINE PHOSPHATASE 84 U/L (38-126); ANION GAP 11 (5-19); ASPARTATE AMINO TRANSFERASE 23 U/L (14-36); BILIRUBIN,DIRECT 0.3 mg/dL (0.0-0.4); BILIRUBIN,TOTAL 0.4 mg/dL (0.2-1.3); BLOOD UREA NITROGEN 15 mg/dL (7-20); CALCIUM 9.5 mg/dL (8.4-10.2); CARBON DIOXIDE 26 mmol/L (22-30); CHLORIDE 103 mmol/L (98-107); GLUCOSE 102 mg/dL (75-110); POTASSIUM 4.2 mmol/L (3.6-5.0); SODIUM 140.3 mmol/L (137-145); TOTAL PROTEIN 7.2 g/dL (6.3-8.2)
--- NOTE | 2017-05-19 04:49 | RADIOLOGY REPORT (SQ) ---
EXAM DESCRIPTION: U/S NON OB PEL TV W/DOPPLER COMPLETED DATE/TIME: 05/19/2017 4:29 am REASON FOR STUDY: heavy vaginal bleeding x3 weeks, cramping COMPARISON: None. TECHNIQUE: Dynamic and static grayscale images acquired of the pelvis via transvaginal approach and recorded on PACS. Additional selected color Doppler and spectral images recorded. LIMITATIONS: None. FINDINGS: UTERUS: Measures 8.7 x 5.5 x 4.6 cm. No focal myometrial mass was seen. ENDOMETRIAL STRIPE: The endometrium measures 19 mm in double wall thickness. CERVIX: The cervix measures 2.6 cm in length and it is closed. RIGHT OVARY: The right ovary measures 3.6 x 2.5 x 2.7 cm. Flow by Doppler was shown to the right ova ry. LEFT OVARY: The left ovary measures 3.2 x 2.6 x 2.9 cm. Flow by Doppler was shown to the left ovary. Two anechoic areas adjacent to the left ovary measuring 1.7 x 1.4 x 1.4 cm and 1.7 x 1.6 x 1.3 cm, respectively. FREE FLUID: Trace free pelvic fluid. IMPRESSION: Thickened endometrium, may be secondary to endometrial hyperplasia versus neoplasm. Cor relation with endometrial biopsy recommended. Small cysts at the left adnexa, may represent paraovarian cysts or exophytic ovarian cysts. Trace free pelvic fluid. TECHNICAL DOCUMENTATION: JOB ID: [id number] [place]-64 2010 [employer]- All Rights Reserved
== END 2017-05-19 04:45 | disposition home or self-care (01) ==
LOC: ER 23:25
DX: N93.9 Abnormal uterine and vaginal bleeding, unspecified (principal); R93.8 Abnormal findings on diagnostic imaging of other specified body structures; I10 Essential (primary) hypertension; Z98.890 Other specified postprocedural states; Z88.0 Allergy status to penicillin
CPT/HCPCS: 36415; 76830; 80053; 81001; 81025; 85025; 93976; 99284

== ENCOUNTER 2017-05-30 14:43 | Emergency (ER) | payer SELFPAY ==
[2017-05-30 14:59] VITALS: BP 128/55
== END 2017-05-30 16:50 | disposition left against medical advice (07) ==
LOC: ER 14:43
DX: Z53.9 Procedure and treatment not carried out, unspecified reason (principal); M79.604 Pain in right leg; M79.605 Pain in left leg

== ENCOUNTER 2017-06-18 20:47 | Emergency (ER) | payer SELFPAY ==
[2017-06-18 21:58] LABS: APPEARANCE,URINE SLIGHTLY-CLOUDY; BILIRUBIN,URINE NEGATIVE (NEGATIVE); GLUCOSE, URINE NEGATIVE (NEGATIVE); KETONES,URINE NEGATIVE (NEGATIVE); LEUKOCYTE ESTERASE,URINE NEGATIVE (NEGATIVE); NITRITE,URINE NEGATIVE (NEGATIVE); PROTEIN,URINE 30 mg/dL (NEGATIVE); URINE SPECIFIC GRAVITY 1.026; UROBILINOGEN,URINE NEGATIVE mg/dL (<2.0)
[2017-06-18 21:59] LABS: ABSOLUTE BASOPHILS # (AUTO) 0.1 10^3/uL (0.0-0.2); ABSOLUTE EOSINOPHILS # (AUTO) 0.2 10^3/uL (0.0-0.6); ABSOLUTE LYMPHOCYTES (AUTO) 2.2 10^3/uL (0.5-4.7); ABSOLUTE MONOCYTES (AUTO) 0.6 10^3/uL (0.1-1.4); ABSOLUTE NEUT (AUTO) 3.8 10^3/uL (1.7-8.2); BASOPHILS % (AUTO) 0.8 % (0-2); EOSINOPHILS % (AUTO) 2.6 % (0-6); HEMATOCRIT 35.8 % (36.0-47.0); HEMOGLOBIN 11.7 g/dL (12.0-15.5); HGB HCT DIFFERENCE -0.7; LYMPHOCYTES % (AUTO) 32.2 % (13-45); MEAN CORPUSCULAR HEMOGLOBIN 24.8 pg (27.0-33.4); MEAN CORPUSCULAR HGB CONC 32.7 g/dL (32.0-36.0); MEAN CORPUSCULAR VOLUME 76 fl (80-97); MONOCYTES % (AUTO) 9.1 % (3-13); RED BLOOD COUNT 4.72 10^6/uL (3.72-5.28); RED CELL DISTRIBUTION WIDTH 17.6 % (11.5-14.0); SEGMENTED NEUTROPHILS % (AUTO) 55.3 % (42-78); WHITE BLOOD COUNT 6.9 10^3/uL (4.0-10.5)
== END 2017-06-18 22:10 | disposition left against medical advice (07) ==
LOC: ER 20:47
DX: Z53.21 Procedure and treatment not carried out due to patient leaving prior to being seen by health care provider (principal)
CPT/HCPCS: 36415; 81001; 85025

== ENCOUNTER 2017-11-22 11:42 | Emergency (ER) | payer OTHER ==
--- NOTE | 2017-11-22 12:43 | ER Document Report ---
ED General - General Chief Complaint: Anxiety Stated Complaint: CHEST TIGHTNESS,ANXIOUS Mode of Arrival: Ambulatory Information source: Patient Notes: 27-year-old female presents with complaints of anxiety panic attack and presents with complaints of initial rapid heart rate shortness of breath. Patient notes she is on lorazepam but stress at work was worse. She notes that she felt her heart racing, patient states this feels exactly like her previous panic attacks, when she arrived here symptoms resolved Patient denies any DVT PE risk factors TRAVEL OUTSIDE OF THE [place] IN LAST 30 DAYS: No - HPI Onset: Just prior to arrival Onset/Duration: Sudden Quality of pain: No pain Severity: Mild Pain Level: Denies Associated symptoms: Other Exacerbated by: Denies Relieved by: Denies Similar symptoms previously: No Recently seen / treated by doctor: No - Related Data Allergies/Adverse Reactions: Penicillins Allergy (Verified 06/18/17 21:32) Nausea Past Medical History - Social History Smoking Status: Never Smoker Cigarette use (# per day): No Chew tobacco use (# tins/day): No Smoking Education Provided: No Frequency of alcohol use: Occasional Drug Abuse: None Family History: CVA, DM, Malignancy Patient has suicidal ideation: No Patient has homicidal ideation: No - Past Medical History Cardiac Medical History: Reports: Hx Hypertension Denies: Hx Coronary Artery Disease, Hx Heart Attack Pulmonary Medical History: Denies: Hx Asthma, Hx Bronchitis, Hx COPD, Hx Pneumonia Neurological Medical History: Denies: Hx Cerebrovascular Accident, Hx Seizures Renal/ Medical History: Denies: Hx Peritoneal Dialysis Musculoskeltal Medical History: Denies Hx Arthritis, Reports Hx Musculoskeletal Trauma Skin Medical History: Reports Hx Eczema Psychiatric Medical History: Reports: Hx Bipolar Disorder Past Surgical History: Reports: Hx Dilation and Curettage - 2, Hx Gynecologic Surgery - D&C - Immunizations Immunizations up to date: Yes Hx Diphtheria, Pertussis, Tetanus Vaccination: Yes - 2009 Review of Systems - Review of Systems Notes: REVIEW OF SYSTEMS: CONSTITUTIONAL : Denies fever, chills, or sweats. Denies recent illness. EENT: Denies eye, ear, throat, or mouth pain or symptoms. Denies nasal or sinus congestion or discharge. Denies throat, tongue, or mouth swelling or difficulty swallowing. CARDIOVASCULAR: Denies chest pain. Denies palpitations or racing or irregular heart beat. Denies ankle edema. RESPIRATORY: Denies cough, cold, or chest congestion. Denies shortness of breath, difficulty breathing, or wheezing. GASTROINTESTINAL: Denies abdominal pain or distention. Denies nausea, vomiting , or diarrhea. Denies blood in vomitus, stools, or per rectum. Denies black, tarry stools. Denies constipation. GENITOURINARY: Denies difficulty urinating, painful urination, burning, frequency, blood in urine, or discharge. FEMALE GENITOURINARY: Denies vaginal bleeding, heavy or abnormal periods, irregular periods. Denies vaginal discharge or odor. MUSCULOSKELETAL: Denies back or neck pain or stiffness. Denies joint pain or swelling. SKIN: Denies rash, lesions or sores. HEMATOLOGIC : Denies easy bruising or bleeding. LYMPHATIC: Denies swollen, enlarged glands. NEUROLOGICAL: Denies confusion or altered mental status. Denies passing out or loss of consciousness. Denies dizziness or lightheadedness. Denies headache. Denies weakness or paralysis or loss of use of either side. Denies problems with gait or speech. Denies sensory loss, numbness, or tingling. Denies seizures. PSYCHIATRIC: Admits to anxiety ALL OTHER SYSTEMS REVIEWED AND NEGATIVE. PHYSICAL EXAMINATION: GENERAL: Well-appearing, well-nourished and in no acute distress. HEAD: Atraumatic, normocephalic. EYES: Pupils equal round and reactive to light, extraocular movements intact, conjunctiva are normal. ENT: Nares patent, oropharynx clear without exudates. Moist mucous membranes. NECK: Normal range of motion, supple without lymphadenopathy LUNGS: Breath sounds clear to auscultation bilaterally and equal. No wheezes rales or rhonchi. HEART: Regular rate and rhythm without murmurs ABDOMEN: Soft, nontender, nondistended abdomen. No guarding, no rebound. No masses appreciated. Female : deferred Musculoskeletal: Normal range of motion, no pitting or edema. No cyanosis. NEUROLOGICAL: Cranial nerves grossly intact. Normal speech, normal gait. Normal sensory, motor exams PSYCH: Normal mood, normal affect. SKIN: Vitiligo Dictation was performed using [employer] recognition software Physical Exam - Vital signs Vitals: Temp Pulse Resp BP Pulse Ox 98.7 F 71 18 111/62 100 11/22/17 11:47 11/22/17 11:47 11/22/17 11:47 11/22/17 11:47 11/22/17 11:47 Course - Re-evaluation Re-evalutation: 11/22/17 12:57 Patient's presentation is most consistent with a panic attack, her symptoms have since resolved, patient would like to have a work note which I believe it is appropriate, she otherwise looks well is in no distress will be discharged home with close follow-up After performing a Medical Screening Examination, I estimate there is LOW risk for INTRACRANIAL HEMORRHAGE, ISCHEMIC CVA, MALIGNANT DYSRHYTHMIA, ACUTE CORONARY SYNDROME, MENINGITIS, PULMONARY EMBOLISM, or SEPSIS thus I consider the discharge disposition reasonable. I have reevaluated this patient multiple times and no significant life threatening changes are noted. The patient and I have discussed the diagnosis and risks, and we agree with discharging home with close follow-up with the understanding that symptoms and presentations can change. We also discussed returning to the Emergency Department immediately if new or worsening symptoms occur. We have discussed the symptoms which are most concerning (e.g., changing or worsening pain, weakness, vomiting, fever) that necessitate immediate return. - Vital Signs Vital signs: Temp Pulse Resp BP Pulse Ox 98.7 F 71 18 111/62 100 11/22/17 11:47 11/22/17 11:47 11/22/17 11:47 11/22/17 11:47 11/22/17 11:47 Discharge - Discharge Clinical Impression: Anxiety, Panic attack as reaction to stress Condition: Stable Disposition: HOME, SELF-CARE Instructions: Anxiety ([facility]) Forms: Return to Work
[2017-11-22 13:00] VITALS: BP 139/74
== END 2017-11-22 13:01 | disposition home or self-care (01) ==
LOC: ER 11:42
DX: F43.0 Acute stress reaction (principal); F41.9 Anxiety disorder, unspecified; Z79.899 Other long term (current) drug therapy; L80 Vitiligo; I10 Essential (primary) hypertension; Z88.0 Allergy status to penicillin
CPT/HCPCS: 99283

== ENCOUNTER 2018-01-30 09:16 | Emergency (ER) | payer OTHER ==
--- NOTE | 2018-01-30 09:41 | ER Document Report ---
ED Medical Screen (RME) - General Chief Complaint: Vaginal Bleeding Stated Complaint: ABDOMINAL PAIN/HEADACHE Time Seen by Provider: 01/30/18 09:38 Notes: RAPID MEDICAL EVALUATION DISCLOSURE I have seen this patient as part of a Rapid Medical Evaluation and, if applicable, placed any initially appropriate orders. The patient will be seen and fully evaluated, including a full history and physical exam, by a provider ( in Main ED or Fast Track) when a room becomes available. 28-year-old female here with complaints of vaginal bleeding and lower abdominal cramping ongoing past 2 months. She has bleeding almost every day and it varies from spotting to light bleeding to heavy bleeding. She is does not have a PCP or REHABILITATION PHYSICIAN. She does not know if she could be . She denies lightheadedness shortness of breath. TRAVEL OUTSIDE OF THE [place] IN LAST 30 DAYS: No - Related Data Allergies/Adverse Reactions: Penicillins Allergy (Verified 01/30/18 09:19) Nausea Past Medical History - Past Medical History Cardiac Medical History: Reports: Hx Hypertension Denies: Hx Coronary Artery Disease, Hx Heart Attack Pulmonary Medical History: Denies: Hx Asthma, Hx Bronchitis, Hx COPD, Hx Pneumonia Neurological Medical History: Denies: Hx Cerebrovascular Accident, Hx Seizures Renal/ Medical History: Denies: Hx Peritoneal Dialysis Musculoskeltal Medical History: Denies Hx Arthritis, Reports Hx Musculoskeletal Trauma Skin Medical History: Reports Hx Eczema Psychiatric Medical History: Reports: Hx Bipolar Disorder Past Surgical History: Reports: Hx Dilation and Curettage - 2, Hx Gynecologic Surgery - D&C - Immunizations Immunizations up to date: Yes Hx Diphtheria, Pertussis, Tetanus Vaccination: Yes - 2009 Physical Exam - Vital signs Vitals: Temp Pulse Resp BP Pulse Ox 98.4 F 90 16 125/62 97 01/30/18 09:23 01/30/18 09:23 01/30/18 09:23 01/30/18 09:23 01/30/18 09:23 Course - Vital Signs Vital signs: Temp Pulse Resp BP Pulse Ox 98.4 F 90 16 125/62 97 01/30/18 09:23 01/30/18 09:23 01/30/18 09:23 01/30/18 09:23 01/30/18 09:23
[2018-01-30] MEDS ORDERED: IBUPROFEN 800 MG TABLET PO ONE (10:15)
[2018-01-30] MEDS ORDERED: ONDANSETRON 4 MG TAB.RAPDIS PO ONE (10:15)
[2018-01-30 10:18] LABS: ABSOLUTE EOSINOPHILS # (AUTO) 0.2 10^3/uL (0.0-0.6); ABSOLUTE LYMPHOCYTES (AUTO) 1.5 10^3/uL (0.5-4.7); ABSOLUTE MONOCYTES (AUTO) 0.5 10^3/uL (0.1-1.4); BASOPHILS % (AUTO) 0.8 % (0-2); EOSINOPHILS % (AUTO) 3.5 % (0-6); HEMATOCRIT 38.2 % (36.0-47.0); HEMOGLOBIN 12.3 g/dL (12.0-15.5); LYMPHOCYTES % (AUTO) 28.5 % (13-45); MEAN CORPUSCULAR HEMOGLOBIN 23.5 pg (27.0-33.4); MEAN CORPUSCULAR HGB CONC 32.1 g/dL (32.0-36.0); MEAN CORPUSCULAR VOLUME 73 fl (80-97); MONOCYTES % (AUTO) 9.6 % (3-13); PLATELET COUNT 332 10^3/uL (150-450); RED CELL DISTRIBUTION WIDTH 18.1 % (11.5-14.0); SEGMENTED NEUTROPHILS % (AUTO) 57.6 % (42-78); TOTAL CELLS COUNTED % (AUTO) 100 %; WHITE BLOOD COUNT 5.2 10^3/uL (4.0-10.5)
[2018-01-30 10:32] LABS: RBCS (WET MOUNT) 4+ RBCS SEEN; T.VAGINALIS (WET MOUNT) NO TRICHOMONAS SEEN; WBCS (WET MOUNT) 1+ WBCS SEEN; YEAST (WET MOUNT) NO YEAST SEEN
[2018-01-30 10:43] LABS: ANION GAP 9 (5-19); BLOOD UREA NITROGEN 14 mg/dL (7-20); CALCIUM 9.6 mg/dL (8.4-10.2); CARBON DIOXIDE 28 mmol/L (22-30); CHLORIDE 105 mmol/L (98-107); GLUCOSE 83 mg/dL (75-110); POTASSIUM 4.2 mmol/L (3.6-5.0); SODIUM 142.4 mmol/L (137-145)
--- NOTE | 2018-01-30 10:43 | ER Document Report ---
ED GI/ - General Chief Complaint: Vaginal Bleeding Stated Complaint: ABDOMINAL PAIN/HEADACHE Time Seen by Provider: 01/30/18 09:38 Mode of Arrival: Ambulatory Information source: Patient Notes: 28-year-old female presented ED for complaint of vaginal bleeding with lower pelvic cramping ongoing for 2 months. She states she bleeds almost every day it varies from spotting to heavy bleeding. She states she does not have a PCP or [facility]. She does not know if she is or not. She denies any signs or symptoms of nausea vomiting lightheadedness or shortness of breath. She is alert and oriented walks with a even steady gait. TRAVEL OUTSIDE OF THE [place] IN LAST 30 DAYS: No - HPI Patient complains to provider of: Pelvic pain, Vaginal bleeding Onset: Other - 2 months Timing/Duration: Intermittent Quality of pain: Cramping Severity at maximum: Moderate Severity in ED: Moderate Pain Level: 3 Location: Suprapubic, Pelvis Vaginal bleeding (Compared to normal period): Strap Buckler Machine Menstrual period history: Abnormal LMP: Has been bleeding for the last 2 months Associated symptoms: Other - Pelvic pain and vaginal bleeding Exacerbated by: Denies Relieved by: Denies Similar symptoms previously: Yes Recently seen / treated by doctor: No - Related Data Allergies/Adverse Reactions: Penicillins Allergy (Verified 01/30/18 09:19) Nausea Past Medical History - General Information source: Patient - Social History Smoking Status: Never Smoker Cigarette use (# per day): No Chew tobacco use (# tins/day): No Smoking Education Provided: No Frequency of alcohol use: Occasional Drug Abuse: None Lives with: Family Family History: CVA, DM, Malignancy Patient has suicidal ideation: No Patient has homicidal ideation: No - Past Medical History Cardiac Medical History: Reports: Hx Hypertension Pulmonary Medical History: Reports: None EENT Medical History: Reports: None Neurological Medical History: Reports: None Endocrine Medical History: Reports: None Renal/ Medical History: Reports: None Malignancy Medical History: Reports: None GI Medical History: Reports: None Musculoskeltal Medical History: Reports Hx Musculoskeletal Trauma Skin Medical History: Reports Hx Eczema Psychiatric Medical History: Reports: Hx Bipolar Disorder Traumatic Medical History: Reports: None Infectious Medical History: Reports: None Past Surgical History: Reports: Hx Dilation and Curettage - 2, Hx Gynecologic Surgery - D&C - Immunizations Immunizations up to date: Yes Hx Diphtheria, Pertussis, Tetanus Vaccination: Yes - 2009 Review of Systems - Review of Systems Constitutional: No symptoms reported EENT: No symptoms reported Cardiovascular: No symptoms reported Respiratory: No symptoms reported Gastrointestinal: No symptoms reported Genitourinary: No symptoms reported Female Genitourinary: Vaginal bleeding, Other - Pelvic pain Musculoskeletal: No symptoms reported Skin: No symptoms reported Hematologic/Lymphatic: No symptoms reported Neurological/Psychological: No symptoms reported -: Yes All other systems reviewed and negative Physical Exam - Vital signs Vitals: Temp Pulse Resp BP Pulse Ox 98.4 F 90 16 125/62 97 01/30/18 09:23 01/30/18 09:23 01/30/18 09:23 01/30/18 09:23 01/30/18 09:23 Interpretation: Normal - General General appearance: Appears well, Alert - HEENT Head: Normocephalic, Atraumatic Eyes: Normal Pupils: PERRL - Respiratory Respiratory status: No respiratory distress Chest status: Nontender Breath sounds: Normal Chest palpation: Normal - Cardiovascular Rhythm: Regular Heart sounds: Normal auscultation Murmur: No - Abdominal Inspection: Normal Distension: No distension Bowel sounds: Normal Tenderness: Nontender Organomegaly: No organomegaly - Genitourinary External exam: Normal Speculum exam: Normal Vaginal bleeding: Mild Bimanuel exam: Normal - Back Back: Normal, Nontender - Extremities General upper extremity: Normal inspection, Nontender, Normal color, Normal ROM , Normal temperature General lower extremity: Normal inspection, Nontender, Normal color, Normal ROM , Normal temperature, Normal weight bearing. No: Neris's sign - Neurological Neuro grossly intact: Yes Cognition: Normal Orientation: AAOx4 Rubi Coma Scale Eye Opening: Spontaneous Rubi Coma Scale Verbal: Oriented Rubi Coma Scale Motor: Obeys Commands Rubi Coma Scale Total: 15 Speech: Normal Motor strength normal: LUE, RUE, LLE, RLE Sensory: Normal - Psychological Associated symptoms: Normal affect, Normal mood - Skin Skin Temperature: Warm Skin Moisture: Dry Skin Color: Normal Course - Re-evaluation Re-evalutation: 01/30/18 21:47 Labs and ultrasound discussed with patient before discharge. Patient was given instructions on ovarian cyst. Patient to follow-up with [facility]. Patient verbalized understanding and agreement with treatment plan. - Vital Signs Vital signs: Temp Pulse Resp BP Pulse Ox 98.2 F 78 16 128/52 H 98 01/30/18 13:20 01/30/18 13:20 01/30/18 13:20 01/30/18 13:20 01/30/18 13:20 - Laboratory Result Diagrams: 01/30/18 09:50 01/30/18 09:50 Laboratory results interpreted by me: 01/30/18 01/30/18 09:50 09:50 MCV 73 L MCH 23.5 L RDW 18.1 H Urine Blood LARGE H - Diagnostic Test Radiology reviewed: Image reviewed, Reports reviewed Discharge - Discharge Clinical Impression: Vaginal bleeding, Left ovarian cyst Condition: Stable Disposition: HOME, SELF-CARE Additional Instructions: VAGINAL BLEEDING: You are having an episode of abnormal bleeding. Causes of abnormal vaginal bleeding can include miscarriage or tubal , tumors such as cancer or benign fibroids, medication effects, or hormone imbalance. Testing can eliminate unsuspected , tumors, or infection as a cause. "Dysfunctional uterine bleeding" is due to hormone imbalance, and is especially common at times when the normal cycle is disturbed -- whether by recent , use of control pills or hormones, or impending menopause. If the bleeding is innocent, most commonly a short course of hormones is given to restore the uterus to normal. Sometimes, the normal menstrual cycle corrects itself naturally. Sometimes , brief hormone therapy, or even a D&C is required. Your physician will advise you. Treatment for anemia may be required if bleeding is severe. You should rest and avoid intercourse until the bleeding is controlled. Call the doctor or return for re-examination if you feel faint, have increasing pain, or have a major increase in the amount of bleeding. Ovarian Cyst Your examination shows the presence of an ovarian cyst. This is a ball of fluid attached to the ovary. Ovarian cysts in women of child-bearing age are usually innocent. However, the cyst may cause pain when it grows or bursts. An innocent ovarian cyst will usually go away by itself. When the cyst becomes painful, you should rest. Pain medication may be required. Some women find a hot water bottle soothing. The pain usually resolves within one or two days. After menopause, an ovarian cyst may mean a tumor, and requires more aggressive evaluation -- usually surgery is recommended to remove or biopsy the cyst. A very large cyst requires evaluation at any age. Most cysts (even the innocent ones) require follow-up examination. Call the doctor or return at any time if the pain increases significantly, if you become faint, or if you experience vaginal bleeding. FOLLOW-UP CARE: If you have been referred to a physician for follow-up care, call the physician s office for an appointment as you were instructed or within the next two days. If you experience worsening or a significant change in your symptoms (very heavy bleeding with large clots of blood, passage of tissue, more severe abdominal / pelvic pain or cramping, feeling faint or severe weakness, fever, etc.), notify the physician immediately or return to the Emergency Department at any time for re-evaluation. OBSTETRIC-GYNECOLOGIC (OB-OPERATIONS WELDER) PHYSICIANS IN [place]: [facility] [address] [place] [address] [phone] Prescriptions: Ibuprofen 600 mg PO Q6HP PRN #20 tablet PRN Reason: Prochlorperazine Maleate [Compazine 10 mg Tablet] 10 mg PO Q6HP PRN #10 tablet PRN Reason: Forms: Return to Work
[2018-01-30 10:44] LABS: APPEARANCE,URINE SLIGHTLY-CLOUDY; BILIRUBIN,URINE NEGATIVE (NEGATIVE); COLOR,URINE YELLOW; GLUCOSE, URINE NEGATIVE (NEGATIVE); KETONES,URINE NEGATIVE (NEGATIVE); LEUKOCYTE ESTERASE,URINE NEGATIVE (NEGATIVE); NITRITE,URINE NEGATIVE (NEGATIVE); PROTEIN,URINE NEGATIVE (NEGATIVE); URINE SPECIFIC GRAVITY 1.027; UROBILINOGEN,URINE NEGATIVE mg/dL (<2.0)
[2018-01-30 11:56] LABS: CHLAM PCR NOT DETECTED (NOT DETECT); GON PCR NOT DETECTED (NOT DETECT)
--- NOTE | 2018-01-30 13:07 | RADIOLOGY REPORT (SQ) ---
EXAM DESCRIPTION: U/S NON-OB PELVIS TV W/O DOP COMPLETED DATE/TIME: 01/30/2018 12:53 pm REASON FOR STUDY: pelvic pain and bleeding COMPARISON: OB ultrasound 06/19/2016 Pelvic ultrasound 05/19/2017 TECHNIQUE: Dynamic and static grayscale images acquired of the pelvis via transvaginal approach and recorded on PACS. Additional selected color Doppler and spectral images recorded. LIMITATIONS: None. FINDINGS: UTERUS: Contour normal. No mass. Uterus measures 8 x 5 x 4 cm in size ENDOMETRIAL STRIPE: No focal or generalized thickening. No masses. Endometrial stripe 15 mm in thick ness. CERVIX: No nabothian cysts. Cervix is closed, 3.5 cm in length. RIGHT OVARY AND DOPPLER: Normal size. No worrisome masses. Normal arterial vascular flow without evid ence for torsion. Right ovary is 3.6 x 2.4 x 2.8 cm. LEFT OVARY AND DOPPLER: Normal size. No worrisome masses. Normal arterial vascular flow without evide nce for torsion. Left ovary is 3.9 x 2.8 x 3.4 cm in size with a 1.4 cm follicular cysts. There is an adjacent 1.4 cm para ovarian cyst, similar compared to 06/19/2016 and 05/19/2017. FREE FLUID: None noted. OTHER: No other significant finding. IMPRESSION: No free pelvic fluid. Unremarkable uterus and endometrium Normal size ovaries. Normal ovaries Doppler flow Stable 14 mm left paraovarian cyst TECHNICAL DOCUMENTATION: JOB ID: [id number] [employer]- All Rights Reserved Rev Reading location - IP/workstation name: [email or web address]
[2018-01-30 13:47] VITALS: BP 128/52
== END 2018-01-30 13:47 | disposition home or self-care (01) ==
LOC: ER 09:16
DX: N83.202 Unspecified ovarian cyst, left side (principal); N93.9 Abnormal uterine and vaginal bleeding, unspecified; R10.2 Pelvic and perineal pain; R10.9 Unspecified abdominal pain; R51 Headache; I10 Essential (primary) hypertension
CPT/HCPCS: 99284; 36415; 87210; 85025; 81025; 80048; 81001; 87491; 87591; 76830; S0119

== ENCOUNTER 2018-04-16 12:38 | Emergency (ER) | payer OTHER ==
[2018-04-16 12:44] VITALS: BP 119/69
[2018-04-16] MEDS ORDERED: IBUPROFEN 800 MG TABLET PO ONE (15:01)
--- NOTE | 2018-04-16 15:07 | ER Document Report ---
ED Extremity Problem, Upper - General Chief Complaint: Shoulder Pain Stated Complaint: LEFT SHOULDER PAIN Time Seen by Provider: 04/16/18 14:54 Mode of Arrival: Ambulatory Information source: Patient Notes: 28-year-old female presented ED for complaint of left shoulder pain. She states it has been hurting for 2-3 days that she does not remember any injury to the shoulder. She states it might just be spasming. She states it hurts to raise her arm or to move her shoulder. Patient is alert and oriented respirations regular and unlabored speaking in full sentences and walks with a even steady gait. TRAVEL OUTSIDE OF THE [place] IN LAST 30 DAYS: No - HPI Patient complains to provider of: Left, Shoulder Onset: Other - 2-3 days Where: Home Quality of pain: Burning, Sharp Severity of pain: Intermittent Pain Level: 4 Associated symptoms: None Exacerbated by: Movement, Exertion Relieved by: Rest, Positioning Similar symptoms previously: No - Related Data Allergies/Adverse Reactions: Penicillins Allergy (Verified 01/30/18 09:19) Nausea Past Medical History - General Information source: Patient - Social History Smoking Status: Never Smoker Cigarette use (# per day): No Chew tobacco use (# tins/day): No Smoking Education Provided: No Frequency of alcohol use: Rare Drug Abuse: None Occupation: Customer service Lives with: Family Family History: CVA, DM, Malignancy Patient has suicidal ideation: No Patient has homicidal ideation: No - Past Medical History Cardiac Medical History: Reports: Hx Hypertension Pulmonary Medical History: Reports: None EENT Medical History: Reports: None Neurological Medical History: Reports: None Endocrine Medical History: Reports: None Renal/ Medical History: Reports: None Malignancy Medical History: Reports: None GI Medical History: Reports: None Musculoskeletal Medical History: Reports Hx Musculoskeletal Trauma Skin Medical History: Reports Hx Eczema Psychiatric Medical History: Reports: Hx Bipolar Disorder Traumatic Medical History: Reports: None Infectious Medical History: Reports: None Past Surgical History: Reports: Hx Dilation and Curettage - 2, Hx Gynecologic Surgery - D&C - Immunizations Immunizations up to date: Yes Hx Diphtheria, Pertussis, Tetanus Vaccination: Yes - 2009 Review of Systems - Review of Systems Constitutional: No symptoms reported EENT: No symptoms reported Cardiovascular: No symptoms reported Respiratory: No symptoms reported Gastrointestinal: No symptoms reported Genitourinary: No symptoms reported Female Genitourinary: No symptoms reported Musculoskeletal: Joint pain - Left shoulder pain, Muscle pain, Muscle stiffness. denies: Joint swelling Skin: No symptoms reported Hematologic/Lymphatic: No symptoms reported Neurological/Psychological: No symptoms reported -: Yes All other systems reviewed and negative Physical Exam - Vital signs Vitals: Temp Pulse Resp BP Pulse Ox 98.2 F 96 16 119/69 97 04/16/18 12:42 04/16/18 12:42 04/16/18 12:42 04/16/18 12:42 04/16/18 12:42 Interpretation: Normal - General General appearance: Appears well, Alert - HEENT Head: Normocephalic, Atraumatic Eyes: Normal Pupils: PERRL - Respiratory Respiratory status: No respiratory distress Chest status: Nontender Breath sounds: Normal Chest palpation: Normal - Cardiovascular Rhythm: Regular Heart sounds: Normal auscultation Murmur: No - Abdominal Inspection: Normal Distension: No distension Bowel sounds: Normal Tenderness: Nontender Organomegaly: No organomegaly - Back Back: Normal, Nontender - Extremities General upper extremity: Normal inspection, Nontender, Normal color, Normal ROM , Normal temperature General lower extremity: Normal inspection, Nontender, Normal color, Normal ROM , Normal temperature, Normal weight bearing. No: Neris's sign Shoulder: Tender. No: Abrasion, Deformity, Dislocation, Ecchymosis, Instability , Laceration, Limited ROM - She has pain with range of motion but has full range of motion - Neurological Neuro grossly intact: Yes Cognition: Normal Orientation: AAOx4 [place] Coma Scale Eye Opening: Spontaneous Rubi Coma Scale Verbal: Oriented Rubi Coma Scale Motor: Obeys Commands Rubi Coma Scale Total: 15 Speech: Normal Motor strength normal: LUE, RUE, LLE, RLE Sensory: Normal - Psychological Associated symptoms: Normal affect, Normal mood - Skin Skin Temperature: Warm Skin Moisture: Dry Skin Color: Normal Course - Re-evaluation Re-evalutation: 04/16/18 15:08 Discussed range of motion with patient. Patient was treated with ibuprofen discharged home with instructions for ibuprofen and range of motion to the shoulder. Patient was instructed to follow-up with orthopedics if continues to have pain in the shoulder. - Vital Signs Vital signs: Temp Pulse Resp BP Pulse Ox 98.2 F 96 16 119/69 97 04/16/18 12:42 04/16/18 12:42 04/16/18 12:42 04/16/18 12:42 04/16/18 12:42 Discharge - Discharge Clinical Impression: Pain of left shoulder region Condition: Stable Disposition: HOME, SELF-CARE Additional Instructions: You were seen today for pain in your left shoulder area. You stated you did not have any injury to your left shoulder. You state it hurts to move your left shoulder. Exercise Program for the Shoulder Since the shoulder moves in so many directions, the joint attachment is weak. Muscles provide most of the stability to the shoulder. You must exercise your shoulder to prevent painful instability or stiffening. PASSIVE - These may be begun within a few days of the injury. While standing, lean forward, allowing the arm to hang down towards the floor. Move the arm in small circles while slowly twisting your chest towards and away from the hanging arm. Do this for one minute. ACTIVE - These may be performed when the doctor gives permission. Begin with the arms at the sides. Raise the arms forward (shoulder's width apart) until they reach shoulder level. Then slowly swing both arms back until they are aiming straight out away from each other. Then bring them forward again, and finally, lower them to your sides. Repeat 20 to 30 times. As you improve, put weights in your hands for the exercise. Start with one pound, and work up to 10 pounds. Never use more than is comfortable. Athletes may work up to 30 pounds. USE OF [id number] IBUPROFEN: Ibuprofen (Advil, Nuprin, Medipren, Motrin IB) is a medication for fever and pain control. In addition, it has anti- inflammatory effects which may be beneficial, especially in the treatment of injuries. It's best to take ibuprofen with food. Persons with ulcer disease or allergy to aspirin should notify their physician of this before taking ibuprofen. Ibuprofen can be given every four to six hours, for a total of four doses daily. Age Pain or fever dose Antiinflammatory dose 6-8 yr 200 mg (1 tab) 200 mg (1 tab) 9-11 yr 200 mg (1 tab) 200-400 mg (1-2 tab) 11-14 yr 200-400 mg (1-2 tab) 400 mg (2 tab) 15-adult 400 mg (2 tab) 600 mg (3 tab) Ice Packs Apply ice packs frequently against the painful area. Many different schedules are recommended, such as "20 minutes on, 20 minutes off" or "one hour ice, two hours rest." If you need to work, you may need to go longer between ice treatments. You should plan to have the area ice packed AT LEAST one fourth of the time. The ice should be applied over the wrap, tape, or splint, or over a layer of cloth -- not directly against the skin. Some ice bags have a built-in cloth and can be put directly on the skin. Warm Packs After approximately two days, apply gentle heat (such as a heating pad or hot water bottle) for about 20 to 30 minutes about every two hours -- at least four times daily. Warmth and elevation will help you make a more rapid recovery , and will ease the pain considerably. Do not use HOT heat, and never apply heat for longer than 30 minutes. The continuous heat can invisibly damage skin and muscles -- even when no burn is seen on the surface. Damaged muscles can make you MORE sore. FOLLOW-UP CARE: If you have been referred to a physician for follow-up care, call the physician s office for an appointment as you were instructed or within the next two days. If you experience worsening or a significant change in your symptoms, notify the physician immediately or return to the Emergency Department at any time for re-evaluation. Forms: Return to Work Referrals: [facility] [Provider Group] - Follow up as needed
== END 2018-04-16 15:11 | disposition home or self-care (01) ==
LOC: ER 12:38
DX: M25.512 Pain in left shoulder (principal); I10 Essential (primary) hypertension
CPT/HCPCS: 99283

== ENCOUNTER 2018-04-29 22:26 | Emergency (ER) | payer OTHER ==
[2018-04-30 00:52] LABS: ABSOLUTE BASOPHILS # (AUTO) 0.1 10^3/uL (0.0-0.2); ABSOLUTE EOSINOPHILS # (AUTO) 0.3 10^3/uL (0.0-0.6); ABSOLUTE MONOCYTES (AUTO) 0.7 10^3/uL (0.1-1.4); ABSOLUTE NEUT (AUTO) 4.4 10^3/uL (1.7-8.2); EOSINOPHILS % (AUTO) 3.8 % (0-6); HEMATOCRIT 34.2 % (36.0-47.0); HEMOGLOBIN 11.1 g/dL (12.0-15.5); LYMPHOCYTES % (AUTO) 26.6 % (13-45); MEAN CORPUSCULAR HEMOGLOBIN 23.9 pg (27.0-33.4); MEAN CORPUSCULAR HGB CONC 32.5 g/dL (32.0-36.0); MEAN CORPUSCULAR VOLUME 73 fl (80-97); MONOCYTES % (AUTO) 9.4 % (3-13); PLATELET COUNT 348 10^3/uL (150-450); RED BLOOD COUNT 4.66 10^6/uL (3.72-5.28); SEGMENTED NEUTROPHILS % (AUTO) 59.2 % (42-78); TOTAL CELLS COUNTED % (AUTO) 100 %; WHITE BLOOD COUNT 7.4 10^3/uL (4.0-10.5)
--- NOTE | 2018-04-30 02:03 | ER Document Report ---
ED General - General Chief Complaint: Vaginal Bleeding Stated Complaint: STOMACH PAINS,CRAMPING,VAGINAL BLEEDING Time Seen by Provider: 04/30/18 00:13 Notes: Patient is 28-year-old female presents with complaint of pain in the suprapubic region with some vaginal bleeding. She is unsure if she could be . She says her menstrual period is late. She says her periods usually on time and she does not have heavy bleeding like she does today. No fevers. No vomiting. No diarrhea. She is and sexually monogamous. She says her and her have been having sex without protection and have been somewhat trying to get . No other complaints at this time. TRAVEL OUTSIDE OF THE [place] IN LAST 30 DAYS: No - Related Data Allergies/Adverse Reactions: Penicillins Allergy (Verified 01/30/18 09:19) Nausea Past Medical History - General Last Menstrual Period: 03-13-18 - Social History Smoking Status: Never Smoker Chew tobacco use (# tins/day): No Frequency of alcohol use: Occasional Drug Abuse: None Family History: CVA, DM, Malignancy Patient has suicidal ideation: No Patient has homicidal ideation: No - Past Medical History Cardiac Medical History: Reports: Hx Hypertension Denies: Hx Coronary Artery Disease, Hx Heart Attack Pulmonary Medical History: Denies: Hx Asthma, Hx Bronchitis, Hx COPD, Hx Pneumonia Neurological Medical History: Denies: Hx Cerebrovascular Accident, Hx Seizures Renal/ Medical History: Denies: Hx Peritoneal Dialysis Musculoskeletal Medical History: Denies Hx Arthritis, Reports Hx Musculoskeletal Trauma Skin Medical History: Reports Hx Eczema Psychiatric Medical History: Reports: Hx Bipolar Disorder Past Surgical History: Reports: Hx Dilation and Curettage - 2, Hx Gynecologic Surgery - D&C - Immunizations Immunizations up to date: Yes Hx Diphtheria, Pertussis, Tetanus Vaccination: Yes - 2009 Review of Systems - Review of Systems Notes: My Normal Review Basic REVIEW OF SYSTEMS: CONSTITUTIONAL : Denies fever, chills, or sweats. Denies recent illness. RESPIRATORY: Denies cough, cold, or chest congestion. Denies shortness of breath, difficulty breathing, or wheezing. GASTROINTESTINAL: Denies abdominal pain. Denies nausea, vomiting, or diarrhea. GENITOURINARY: Denies difficulty urinating, painful urination, burning, frequency, or blood in urine. FEMALE GENITOURINARY: Vaginal bleeding. MUSCULOSKELETAL: Denies neck or back pain or joint pain or swelling. SKIN: Denies rash or skin lesions. NEUROLOGICAL: Denies altered mental status or loss of consciousness. Denies headache. Denies weakness or paralysis or loss of use of either side. Denies problems with gait or speech. Denies sensory or motor loss. ALL OTHER SYSTEMS REVIEWED AND NEGATIVE. Physical Exam - Vital signs Vitals: Temp Pulse Resp BP Pulse Ox 98.6 F 92 18 131/75 H 100 04/29/18 23:10 04/29/18 23:10 04/29/18 23:10 04/29/18 23:10 04/29/18 23:10 - Notes Notes: General Appearance: Well nourished, alert, cooperative, no acute distress, no obvious discomfort. Vitals: reviewed, See vital signs table. Head: no swelling or tenderness to the head Eyes: PERRL, EOMI, Conjuctiva clear Mouth: No decreasd moisture Lungs: No wheezing, No rales, No rhonci, No accessory muscle use, good air exchange bilaterally. Heart: Normal rate, Regular rythm, No murmur, no rub Abdomen: Normal BS, soft, No rigidity, No abdominal tenderness, No guarding, no rebound, no abdominal masses, no organomegaly Pelvic Exam: Normal external genitalia. Moderate amount of blood in vaginal vault. One small clot removed. Cervical os is closed. Normal discharge. Exam performed with female value engineer, Daisy BORJAS. Extremities: strength 5/5 in all extremities, good pulses in all extremities, no swelling or tenderness in the extremities, no edema. Skin: warm, dry, appropriate color, no rash Neuro: speech clear, oriented x 3, normal affect, responds appropriately to questions. Course - Re-evaluation Re-evalutation: 04/30/18 04:26 Patient's ultrasound shows a thickened endometrium and her level is only 6. I suspect that she had a very early that did not progress and now she is having a miscarriage. I discussed this with the patient. I informed her that it is possible she has a very early with bleeding however performed I still suspect this will call and miscarriage. I told her that she should have a repeat hCG level in 3-4 days. Informed her follow-up with her doctor for this or she can return to the ER. Encouraged her return to ER immediately if she has severe pain, occulta breathing, heavy bleeding, lightheadedness or feels unwell. Patient agrees with plan will be discharged home. Dictation of this chart was performed using voice recognition software; therefore, there may be some unintended grammatical errors. - Vital Signs Vital signs: Temp Pulse Resp BP Pulse Ox 98.6 F 92 18 131/75 H 100 04/29/18 23:10 04/29/18 23:10 04/29/18 23:10 04/29/18 23:10 04/29/18 23:10 - Laboratory Result Diagrams: 04/30/18 00:40 Laboratory results interpreted by me: 04/30/18 04/30/18 04/30/18 00:40 00:40 00:40 Hgb 11.1 L Hct 34.2 L MCV 73 L MCH 23.9 L RDW 20.0 H Serum HCG, Qual POSITIVE H Beta HCG, Quant 6.46 H Discharge - Discharge Clinical Impression: Vaginal bleeding Qualifiers: Weeks of gestation: less than 8 weeks Qualified Code(s): Z3A.01 - Less than 8 weeks gestation of Condition: Good Disposition: HOME, SELF-CARE Additional Instructions: Based on your ultrasound, symptoms, and laboratory results I suspect that you most likely had a very early that did not progress and you are now having a miscarriage. It is always possible that this could be a very very early with some bleeding; however, I think that is unlikely. The one way to really tell is to have a repeat check of your hormone level in 3-4 days. Please follow-up with your primary care doctor or [facility]. If you cannot get in to see them then you're more than welcome to come back to the ER and we will happily recheck it. Please return to the ER immediately if you have severe bleeding, back pain, lightheadedness and dizziness, difficulty breathing, or feel unwell. Referrals: RASHAAD BOSE MD [ACTIVE STAFF] - 05/03/18
--- NOTE | 2018-04-30 04:08 | RADIOLOGY REPORT (SQ) ---
EXAM DESCRIPTION: US TRANSVAGINAL COMPLETED DATE/TME: 04/30/2018 02:43 CLINICAL HISTORY: 28 years, Female, vaginal bleeding in LMP 03/13/2018. COMPARISON: None. TECHNIQUE: Complete pelvic ultrasound with transvaginal imaging. FINDINGS: Uterus measures 10.5 x 5.5 x 4.8 cm. Heterogeneous appearance of the endometrium which is thickened measuring 2.5 cm. No gestational sac identified. No myometrial abnormalities. Cervical length of 3.4 cm. The left ovary is not identified. The right ovary measures 3.2 x 2.7 x 2.0 cm. Limited color and spectral Doppler imaging demonstrates flow within the right ovary. No large adnexal masses. No free pelvic fluid. IMPRESSION: 1. No intrauterine gestation identified with thickened endometrium. Differential considerations include miscarriage, early normal , and ectopic . Close continued clinical, laboratory, and sonographic follow-up recommended. 2010 [employer]- All Rights Reserved
[2018-04-30 04:54] VITALS: BP 123/66
== END 2018-04-30 04:54 | disposition home or self-care (01) ==
LOC: ER 22:26
DX: O20.9 Hemorrhage in early pregnancy, unspecified (principal); O26.891 Other specified pregnancy related conditions, first trimester; R10.30 Lower abdominal pain, unspecified; O16.1 Unspecified maternal hypertension, first trimester; Z3A.01 Less than 8 weeks gestation of pregnancy; Z88.0 Allergy status to penicillin
CPT/HCPCS: 36415; 76817; 84702; 84703; 85025; 86900; 86901; 93976; 99284

== ENCOUNTER 2018-05-28 12:23 | Emergency (ER) | payer OTHER ==
[2018-05-28 12:35] VITALS: BP 118/64
== END 2018-05-28 13:55 | disposition left against medical advice (07) ==
LOC: ER 12:23
DX: Z53.21 Procedure and treatment not carried out due to patient leaving prior to being seen by health care provider (principal)

== ENCOUNTER 2018-08-13 10:34 | Emergency (ER) | payer MEDICAID, OTHER ==
[2018-08-13 10:49] VITALS: BP 125/74
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
--- NOTE | 2018-08-13 11:55 | RADIOLOGY REPORT (SQ) ---
EXAM DESCRIPTION: KNEE LEFT 4 VIEW COMPLETED DATE/TIME: 08/13/2018 11:27 am REASON FOR STUDY: pain and swelling COMPARISON: None. NUMBER OF VIEWS: Four views. TECHNIQUE: AP, lateral, and both oblique radiographic images acquired of the left knee. LIMITATIONS: None. FINDINGS: MINERALIZATION: Normal. BONES: No acute fracture or dislocation. No worrisome bone lesions. JOINT: No effusion. SOFT TISSUES: No soft tissue swelling. No radio-opaque foreign body. OTHER: No other significant finding. IMPRESSION: 1. NEGATIVE STUDY OF THE LEFT KNEE. TECHNICAL DOCUMENTATION: JOB ID: [id number] [employer]- All Rights Reserved Reading location - IP/workstation name: [email or web address]
== END 2018-08-14 07:39 | disposition home or self-care (01) ==
LOC: ER 10:34
DX: M25.562 Pain in left knee (principal); W19.XXXA Unspecified fall, initial encounter; G89.29 Other chronic pain; M41.9 Scoliosis, unspecified; I10 Essential (primary) hypertension; Z88.0 Allergy status to penicillin
CPT/HCPCS: 99283

== ENCOUNTER 2018-09-14 21:08 | Emergency (ER) | payer SELFPAY ==
--- NOTE | 2018-09-14 22:38 | RADIOLOGY REPORT (SQ) ---
XR CHEST 1 VIEW HISTORY: Chest pain. COMPARISON: None. FINDINGS: The cardiomediastinal silhouette is unremarkable. The lungs are clear. No pleural effusion or pneumothorax is identified. IMPRESSION: No acute cardiopulmonary abnormality.
[2018-09-14 23:02] LABS: HEMATOCRIT 33.5 % (36.0-47.0); HEMOGLOBIN 10.6 g/dL (12.0-15.5); MEAN CORPUSCULAR HEMOGLOBIN 21.7 pg (27.0-33.4); MEAN CORPUSCULAR HGB CONC 31.6 g/dL (32.0-36.0); MEAN CORPUSCULAR VOLUME 69 fl (80-97); PLATELET COUNT 384 10^3/uL (150-450); RED BLOOD COUNT 4.87 10^6/uL (3.72-5.28)
--- NOTE | 2018-09-14 23:41 | ER Document Report ---
ED General - General Chief Complaint: Chest Pain Stated Complaint: CHEST PAIN Time Seen by Provider: 09/14/18 22:13 Notes: Patient is a 28-year-old female without chronic medical problems who presents with an episode of palpitations that occurred earlier today followed by pain in her right upper extremity and in her chest. She states that the pain was a shocking, aching pain that has now resolved. Denies a history of similar symptoms in the past. Nothing improves or worsens her symptoms. Denies any alcohol or drug use. No chronic medical problems. Does not use any medications of any kind. Does not follow with her primary care doctor regularly. She denies a history of DVT or pulmonary embolus. Denies any associated nausea, vom iting, diaphoresis or shortness of breath. TRAVEL OUTSIDE OF THE [place] IN LAST 30 DAYS: No - Related Data Allergies/Adverse Reactions: Penicillins Allergy (Verified 08/13/18 10:36) Nausea Past Medical History - General Information source: Patient - Social History Smoking Status: Never Smoker Frequency of alcohol use: Rare Drug Abuse: None Lives with: Spouse/Significant other Family History: CVA, DM, Malignancy Patient has suicidal ideation: No Patient has homicidal ideation: No - Past Medical History Cardiac Medical History: Reports: Hx Hypertension Denies: Hx Coronary Artery Disease, Hx Heart Attack Pulmonary Medical History: Denies: Hx Asthma, Hx Bronchitis, Hx COPD, Hx Pneumonia Neurological Medical History: Denies: Hx Cerebrovascular Accident, Hx Seizures Renal/ Medical History: Denies: Hx Peritoneal Dialysis Musculoskeletal Medical History: Denies Hx Arthritis, Reports Hx Musculoskeletal Deformity, Reports Hx Musculoskeletal Trauma Skin Medical History: Reports Hx Eczema Psychiatric Medical History: Reports: Hx Bipolar Disorder Past Surgical History: Reports: Hx Dilation and Curettage - 2, Hx Gynecologic Surgery - D&C, Hx Oral Surgery - Immunizations Immunizations up to date: Yes Hx Diphtheria, Pertussis, Tetanus Vaccination: Yes - 2009 Review of Systems - Review of Systems Notes: Constitutional: Negative for fever. HENT: Negative for sore throat. Eyes: Negative for visual changes. Cardiovascular: Positive for palpitations and chest pain Respiratory: Negative for shortness of breath. Gastrointestinal: Negative for abdominal pain, vomiting or diarrhea. Genitourinary: Negative for dysuria. Musculoskeletal: Negative for back pain. Skin: Negative for rash. Neurological: Negative for headaches, weakness or numbness. 10 point ROS negative except as marked above and in HPI. Physical Exam - Vital signs Vitals: Temp Pulse Resp BP Pulse Ox 98.4 F 109 H 16 140/62 H 98 09/14/18 21:09 09/14/18 21:09 09/14/18 21:09 09/14/18 21:09 09/14/18 21:09 Interpretation: Hypertensive, Tachycardic Notes: PHYSICAL EXAMINATION: GENERAL: Well-appearing, well-nourished and in no acute distress. HEAD: Atraumatic, normocephalic. EYES: Pupils equal round and reactive to light, extraocular movements intact, sclera anicteric, conjunctiva are normal. ENT: nares patent, oropharynx clear without exudates. Moist mucous membranes. NECK: Normal range of motion, supple without lymphadenopathy LUNGS: Breath sounds clear to auscultation bilaterally and equal. No wheezes rales or rhonchi. HEART: Regular rate and rhythm without murmurs ABDOMEN: Soft, nontender, normoactive bowel sounds. No guarding, no rebound. No masses appreciated. EXTREMITIES: Normal range of motion, no pitting or edema. No cyanosis. NEUROLOGICAL: No focal neurological deficits. Moves all extremities spontaneously and on command. PSYCH: Normal mood, normal affect. SKIN: Warm, Dry, normal turgor, no rashes or lesions noted. Course - Re-evaluation Re-evalutation: 09/14/18 23:40 Patient presents with palpitations, right upper extremity discomfort as well as chest pain that started shortly prior to arrival and has now resolved. On initial presentation patient had mild tachycardia in triage. At the time of my assessment the patient's heart rate is in the low 90s and she states she otherwise currently ill as well. No history of similar symptoms in the past. At approximately 2200 the patient did have approximately 8 seconds of continuous V. tach captured on monitor. This did resolve spontaneously. Labs are currently pending. Given this run of ventricular tachycardia will consult cardiology after labs have been completed. 09/15/18 00:24 I discussed this case with Dr. Juarez who advised that the patient is safe for outpatient follow-up for Holter monitoring and echocardiogram given reassuring labs and resolution of symptoms currently. At this time will discharge with return precautions and follow-up recommendations. Verbal discharge instructions given a the bedside and opportunity for questions given. Medication warnings reviewed. Patient is in agreement with this plan and has verbalized und erstanding of return precautions and the need for primary care follow-up in the next 24-72 hours. - Vital Signs Vital signs: Temp Pulse Resp BP Pulse Ox 98.4 F 109 H 8 L 131/69 H 98 09/14/18 21:09 09/14/18 21:09 09/15/18 01:31 09/15/18 01:31 09/15/18 01:31 - Laboratory Result Diagrams: 09/14/18 21:41 09/14/18 21:41 Laboratory results interpreted by me: 09/14/18 21:41 Hgb 10.6 L Hct 33.5 L MCV 69 L MCH 21.7 L MCHC 31.6 L RDW 20.0 H - Diagnostic Test Radiology reviewed: Image reviewed, Reports reviewed Radiology results interpreted by me: 09/15/18 00:25 Chest x-ray: No acute infiltrate pneumothorax - EKG Interpretation by Me Additional EKG results interpreted by me: 09/15/18 00:25 Sinus tachycardia, rate 101. No ST elevations or depressions. QTC is 436. Discharge - Discharge Clinical Impression: Ventricular tachycardia, Chest discomfort Condition: Good Disposition: HOME, SELF-CARE Additional Instructions: You were seen today for chest pain and palpitations. During your visit you did have a run of ventricular tachycardia. I did discuss your case with our sterile processing technologist Dr. Amezcua who would like you to follow-up in the office on Sunday and states that you are safe to go home. Your blood work is otherwise normal. Please return to emergency department immediately if you have worsening of your chest pain, shortness of breath, vomiting, become unable to exert yo urself due to pain or difficulty breathing, you pass out, or have any pain that radiates into your arms, jaw, or back. Please also return if you have any additional symptoms that are concerning to you. Referrals: VELIA AMEZCUA MD [ACTIVE STAFF] - Follow up tomorrow
[2018-09-14 23:47] LABS: ANION GAP 9 (5-19); BLOOD UREA NITROGEN 18 mg/dL (7-20); CALCIUM 9.6 mg/dL (8.4-10.2); CARBON DIOXIDE 25 mmol/L (22-30); CHLORIDE 105 mmol/L (98-107); GLUCOSE 92 mg/dL (75-110); POTASSIUM 3.8 mmol/L (3.6-5.0); SODIUM 138.7 mmol/L (137-145)
[2018-09-15 01:40] VITALS: BP 131/69
--- NOTE | 2018-09-15 12:50 | EKG REPORT ---
SEVERITY:- OTHERWISE NORMAL ECG - SINUS TACHYCARDIA : Confirmed by: Senait Amezcua MD 15-Sep-2018 12:49:35
== END 2018-09-15 01:57 | disposition home or self-care (01) ==
LOC: ER 21:08
DX: I47.2 Ventricular tachycardia (principal); R07.9 Chest pain, unspecified; R00.2 Palpitations; I10 Essential (primary) hypertension
CPT/HCPCS: 36415; 71045; 80048; 84484; 84703; 85027; 93005; 93010; 99285

== ENCOUNTER 2018-12-01 14:44 | Emergency (ER) | payer OTHER ==
[2018-12-01] MEDS ORDERED: IBUPROFEN 600 MG TABLET PO ONE (15:50)
[2018-12-01] MEDS ORDERED: ACETAMINOPHEN 325 MG TABLET PO ONE (15:50)
[2018-12-01 16:21] LABS: AMORPHOUS SEDIMENT,URINE TRACE /HPF; APPEARANCE,URINE SLIGHTLY-CLOUDY; BILIRUBIN,URINE NEGATIVE (NEGATIVE); COLOR,URINE YELLOW; GLUCOSE, URINE NEGATIVE (NEGATIVE); KETONES,URINE NEGATIVE (NEGATIVE); LEUKOCYTE ESTERASE,URINE NEGATIVE (NEGATIVE); NITRITE,URINE NEGATIVE (NEGATIVE); PROTEIN,URINE NEGATIVE (NEGATIVE); URINE SPECIFIC GRAVITY 1.025
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
[2018-12-01 17:26] VITALS: BP 144/76
--- NOTE | 2018-12-02 00:16 | EKG REPORT ---
SEVERITY:- BORDERLINE ECG - SINUS RHYTHM BORDERLINE T ABNORMALITIES, ANTERIOR LEADS : Confirmed by: Aiden Tapia 02-Dec-2018 00:15:55
== END 2018-12-01 17:26 | disposition home or self-care (01) ==
LOC: ER 14:44
DX: M79.10 Myalgia, unspecified site (principal); M54.5 Low back pain; R07.9 Chest pain, unspecified; V44.6XXA Car passenger injured in collision with heavy transport vehicle or bus in traffic accident, initial encounter; Z88.0 Allergy status to penicillin; I10 Essential (primary) hypertension
CPT/HCPCS: 71046; 81001; 81025; 93005; 93010; 99284

== ENCOUNTER 2019-02-04 18:39 | Emergency (ER) | payer OTHER ==
[2019-02-04] MEDS ORDERED: OXYCODONE-ACETAMINOPHEN 5-325 MG TABLET PO ONE (20:39)
[2019-02-04] MEDS ORDERED: KETOROLAC TROMETHAMINE 60 MG/2 ML SDV IM ONE (20:39)
--- NOTE | 2019-02-04 20:52 | ER Document Report ---
Addendum entered and electronically signed by JASWANT BURGOS PA-C 02/04/19 22:25: Course - Re-evaluation Re-evalutation: 02/04/19 22:25 X-ray reading shows joint effusion. No fracture. Discharge as previously planned - Vital Signs Vital signs: Temp Pulse Resp BP Pulse Ox 99.0 F 89 18 130/61 H 100 02/04/19 21:05 02/04/19 21:05 02/04/19 21:05 02/04/19 21:05 02/04/19 21:05 Original Note: HPI - HPI Patient complains to provider of: Left knee pain Time Seen by Provider: 02/04/19 20:28 Onset/Duration: Worse Quality of pain: Sharp Pain Level: 5 Context: Patient has a history of chronic left knee pain for the past year in which she has flareups of pain 4-5 times a week. Patient states that she did recently move days ago and was more active with moving. Patient denies any traumatic injury to the knee. Patient states she has had an increase in pain over the past 2 days. Patient denies any fever. Patient complains of pain in the same location of where she has had chronic pain in the past although states that today it is more severe. Associated Symptoms: Other - Left knee pain. denies: Fever, Weakness Exacerbated by: Movement, Walking Relieved by: Denies Similar symptoms previously: Yes Recently seen / treated by doctor: No - ROS ROS below otherwise negative: Yes Systems Reviewed and Negative: Yes All other systems reviewed and negative - CONSTITUTIONAL Constitutional: DENIES: Fever, Chills - NEURO Neurology: DENIES: Headache, Weakness - GASTROINTESTINAL Gastrointestinal: DENIES: Nausea - REPRODUCTIVE Reproductive: DENIES: : - MUSCULOSKELETAL Musculoskeletal: REPORTS: Extremity pain, Swelling - DERM Skin Color: Normal Skin Problems: None Past Medical History - General Information source: Patient - Social History Smoking Status: Never Smoker Frequency of alcohol use: None Drug Abuse: None Occupation: None Lives with: Family Family History: CVA, DM, Malignancy - Medical History Medical History: Other - Possible lupus, patient has not completed the diagnostic evaluation - Past Medical History Cardiac Medical History: Reports: Other - Anemia Renal/ Medical History: Denies: Hx Peritoneal Dialysis Musculoskeletal Medical History: Reports Hx Arthritis, Reports Hx Musculoskele renetta Deformity, Reports Hx Musculoskeletal Trauma Skin Medical History: Reports Hx Eczema Psychiatric Medical History: Reports: Hx Bipolar Disorder Past Surgical History: Reports: Hx Dilation and Curettage - 2, Hx Gynecologic Surgery - D&C, Hx Oral Surgery - Immunizations Immunizations up to date: Yes Hx Diphtheria, Pertussis, Tetanus Vaccination: Yes - 2009 [facility] Provider Document - CONSTITUTIONAL Agree With Documented VS: Yes Exam Limitations: No Limitations General Appearance: WD/WN, No Apparent Distress - INFECTION CONTROL TRAVEL OUTSIDE OF THE [place] IN LAST 30 DAYS: No - HEENT HEENT: Atraumatic, Normocephalic - NECK Neck: Normal Inspection - RESPIRATORY Respiratory: Breath Sounds Normal, No Respiratory Distress - CARDIOVASCULAR Cardiovascular: Regular Rate, Regular Rhythm Pulses: Normal: Posterior tibial, Dorsalis pedis - BACK Back: Normal Inspection - MUSCULOSKELETAL/EXTREMETIES Musculoskeletal/Extremeties: Tender - Patient with left knee joint tenderness to medial inferior compartment, moderate joint effusion. Normal skin color and temperature overlying joint. No laxity with varus or valgus maneuvers. Patellar tendon intact. - NEURO Level of Consciousness: Awake, Alert, Appropriate Motor/Sensory: No Motor Deficit - DERM Integumentary: Warm, Dry, No Rash Course - Re-evaluation Re-evalutation: 02/04/19 21:18 pt with chronic left knee pain for the past year that flares up about 5 out of 7 days a week. Patient denies any traumatic injury. Patient is uncomfortable with discharge without having an x-ray performed tonight. Report and handoff given to ANGELIC Burgos, patient updated regarding plan of care at this time. - Vital Signs Vital signs: Temp Pulse Resp BP Pulse Ox 98.7 F 92 16 133/76 H 100 02/04/19 19:10 02/04/19 19:10 02/04/19 19:10 02/04/19 19:10 02/04/19 19:10 - Diagnostic Test Radiology reviewed: Reports reviewed - Reviewed patient's radiology report from August ER visit last year Discharge - Discharge Clinical Impression: Left knee pain Qualifiers: Chronicity: chronic Qualified Code(s): M25.562 - Pain in left knee Disposition: HOME, SELF-CARE Instructions: Clayton Wrap ([facility]), Use of Crutches ([facility]), Oral Narcotic Medication ([facility]), Steroid Medication Additional Instructions: Return immediately for any new or worsening symptoms: Increased pain, increased swelling, fever, redness and skin overlying joint or any concerning symptoms Followup with your primary care provider, call tomorrow to make a followup appointment Weightbearing as tolerated Follow-up with orthopedics for further evaluation, call tomorrow for an appo intment Prescriptions: Oxycodone HCl/Acetaminophen [Percocet 5-325 mg Tablet] 1 tab PO ASDIR PRN #15 tablet PRN Reason: Prednisone [Deltasone 20 mg Tablet] 2 tab PO DAILY 5 Days tablet Referrals: [facility] ([facility] [Provider Group] - Follow up tomorrow
--- NOTE | 2019-02-04 22:09 | RADIOLOGY REPORT (SQ) ---
EXAM DESCRIPTION: Left knee RadLex: XR KNEE 4 OR MORE VIEWS Views: 4 CLINICAL HISTORY: 29 years Female, L knee pain COMPARISON: None. FINDINGS: Negative for acute fracture, dislocation, or radiopaque foreign body. There is a large joint effusion. No lytic bone changes or periosteal reaction. IMPRESSION: 1. No displaced fractures. 2. Joint effusion; cannot exclude occult fracture or ligamentous/meniscal injury
[2019-02-04 22:58] VITALS: BP 129/69
== END 2019-02-04 22:57 | disposition home or self-care (01) ==
LOC: ER 18:39
DX: M25.562 Pain in left knee (principal)
CPT/HCPCS: 99283; 96372; 73564; J1885

== ENCOUNTER 2019-02-13 09:59 | Emergency (ER) | payer SELFPAY ==
[2019-02-13 10:05] VITALS: BP 122/79
[2019-02-13] MEDS ORDERED: KETOROLAC TROMETHAMINE 60 MG/2 ML SDV IM ONE (10:19)
--- NOTE | 2019-02-13 10:29 | ER Document Report ---
HPI - HPI Time Seen by Provider: 02/13/19 10:12 Pain Level: 2 Notes: Patient is a 29-year-old female who presents complaining of acute on chronic left knee pain over the past 7 to 10 days. Patient was here about a week ago and was evaluated at that time had an unremarkable x-ray. She was sent home on steroids and Percocet. Patient states that she has had pain for 5 years intermittently with several flareups per month. She still able to ambulate, but does have a limp. She is eating and drinking without difficulties. She is urinating normally. Patient states that the pain is to the same spot every time on the medial side of her knee. Patient states that on occasion her knee feels like it does give out. Patient states that she did see orthopedics for evaluation by the group that she was given a referral for from here. Denies any headache, fever, URI, sore throat, chest pain, palpitations, syncope, cough, shortness of breath, wheeze, dyspnea, abdominal pain, nausea/vomiting/diarrhea, urinary retention, dysuria, hematuria, loss of control of bowel or bladder, numbness/tingling, saddle anesthesia, muscle paralysis/weakness, or rash. - ROS Systems Reviewed and Negative: Yes All other systems reviewed and negative - CONSTITUTIONAL Constitutional: DENIES: Fever, Chills - REPRODUCTIVE Reproductive: DENIES: : - MUSCULOSKELETAL Musculoskeletal: REPORTS: Extremity pain - left knee Past Medical History - Social History Smoking Status: Never Smoker Frequency of alcohol use: None Drug Abuse: None Family History: CVA, DM, Malignancy Patient has suicidal ideation: No Patient has homicidal ideation: No - Past Medical History Cardiac Medical History: Reports: Hx Hypertension Denies: Hx Coronary Artery Disease, Hx Heart Attack Pulmonary Medical History: Denies: Hx Asthma, Hx Bronchitis, Hx COPD, Hx Pneumonia Neurological Medical History: Denies: Hx Cerebrovascular Accident, Hx Seizures Renal/ Medical History: Denies: Hx Peritoneal Dialysis Musculoskeletal Medical History: Reports Hx Arthritis, Reports Hx Musculoskeletal Deformity, Reports Hx Musculoskeletal Trauma Skin Medical History: Reports Hx Eczema Psychiatric Medical History: Reports: Hx Bipolar Disorder Past Surgical History: Reports: Hx Dilation and Curettage - 2, Hx Gynecologic Surgery - D&C, Hx Oral Surgery - Immunizations Immunizations up to date: Yes Hx Diphtheria, Pertussis, Tetanus Vaccination: Yes - [address] [facility] Provider Document - CONSTITUTIONAL Agree With Documented VS: Yes Notes: PHYSICAL EXAMINATION: GENERAL: Well-appearing, well-nourished and in no acute distress. LUNGS: Breath sounds clear to auscultation bilaterally and equal. No wheezes rales or rhonchi. HEART: Regular rate and rhythm without murmurs, rubs, gallops. Musculoskeletal: Lt knee: No obvious swelling, ecchymosis, effusion, or deformity. FROM to passive/active and flexion >90. Strength 5+/5. N/V intact distal. + joint line tenderness medial side, reproduces pain described. Ligamentous grossly stable, limited exam with larger leg size. Jacek grossly negative. Patellar grind negative. No calf tenderness. Extremities: No cyanosis, clubbing, or edema b/l. Peripheral pulses 2+. Capillary refill less than 3 seconds. Neris neg b/l. NEUROLOGICAL: Normal speech, limping gait. Normal sensory, motor exams PSYCH: Normal mood, normal affect. SKIN: Warm, Dry, normal turgor, no rashes or lesions noted. - INFECTION CONTROL TRAVEL OUTSIDE OF THE [place] IN LAST 30 DAYS: No Course - Re-evaluation Re-evalutation: 02/13/19 10:26 Patient told me that orthopedics took an x-ray and moved her knee around, but otherwise that there is nothing wrong with her knee. We also asked if it was Dr. Cordero that saw her and she said that that is who she believes it was. I called [facility] for surgery and they stated that she has never been to their facility before. Patient is an afebrile, well-hydrated, 29-year-old female who presents to the ED with acute on chronic left knee pain, ?internal involvement. Vitals are acceptable without any significant tachycardia, tachypnea, or hypoxia. PE is otherwise unremarkable for any neurovascular compromise, obvious tendon/ligament rupture, obvious fracture/dislocation, septic joint. Toradol given IM. Patient is nontoxic-appearing. Patient is able to ambulate and weight-bear although she is limping. No other labs or imaging warranted at this time based on H&P. Conservative measures otherwise for symptoms. Recheck with your PCM in 3-5 days. Consider consult orthopedics. Return to the ED with any worsening/concerning symptoms otherwise as reviewed in discharge. Patient is in agreement. Pt will not be receiving any narcotics from [facility] for chronic knee pain as we do not treat/manage chronic pain. - Vital Signs Vital signs: Temp Pulse Resp BP Pulse Ox 98.4 F 96 16 122/79 96 02/13/19 10:03 02/13/19 10:03 02/13/19 10:03 02/13/19 10:03 02/13/19 10:03 Discharge - Discharge Clinical Impression: Left knee pain Qualifiers: Chronicity: acute Qualified Code(s): M25.562 - Pain in left knee Condition: Stable Disposition: HOME, SELF-CARE Instructions: Suspected Internal Knee Injury ([facility]), Knee Exercise Program ([facility]) Additional Instructions: Rest, Ice, Compression, Elevation Tylenol/ibuprofen as needed Light stretches daily Strength exercises as able Moist heat and massage may help F/u with your PCP in 3-5 days for a recheck Scheduled appoint with orthopedics for further evaluation and management Return to the ED with any worsening symptoms and/or development of fever, headache, chest pain, palpitations, syncope, shortness of breath, trouble breathing, abdominal pain, n/v/d, muscle weakness/paralysis, numbness/tingling, swelling, redness, or other worsening symptoms that are concerning to you. Prescriptions: Naproxen 500 mg PO BID #10 tablet Referrals: [facility] [Provider Group] - Follow up as needed
== END 2019-02-13 10:33 | disposition home or self-care (01) ==
LOC: ER 09:59
DX: G89.29 Other chronic pain (principal); M25.562 Pain in left knee; I10 Essential (primary) hypertension
CPT/HCPCS: 99283; 96372; J1885

== ENCOUNTER 2019-04-27 10:10 | Emergency (ER) | payer SELFPAY ==
--- NOTE | 2019-04-27 10:38 | ER Document Report ---
ED Medical Screen (RME) - General Chief Complaint: Vaginal Bleeding Stated Complaint: VAGINAL BLEEDING Time Seen by Provider: 04/27/19 10:26 Notes: Patient is a 29-year-old female presents to the emergency department with a chief complaint of vaginal bleeding. Patient states she has had vaginal bleeding for 2 months. Patient states she was seen here at the beginning of April for the same. Patient states she was diagnosed with a left ovarian cyst and anemia. Patient has since [facility], who states that they could not find anything wrong. Patient states she is not on control. Patient states she has to change her pad 4-5 times per day and has had noticed blood clots. Patient denies fever, dizziness, lightheadedness. Patient states she is sexually active but has not had intercourse in 2 months due to the bleeding. Patient states she does take a vitamin with iron. Patient states every other day she will develop a headache. Patient states this feels like a pressure on both sides. Patient states she has a return to the emergency department as she would like help since she has been bleeding for 2 months. TRAVEL OUTSIDE OF THE [place] IN LAST 30 DAYS: No - Related Data Allergies/Adverse Reactions: Penicillins Allergy (Verified 04/27/19 10:10) Nausea Past Medical History - Past Medical History Cardiac Medical History: Reports: Hx Hypertension Denies: Hx Coronary Artery Disease, Hx Heart Attack Pulmonary Medical History: Denies: Hx Asthma, Hx Bronchitis, Hx COPD, Hx Pneumonia Neurological Medical History: Denies: Hx Cerebrovascular Accident, Hx Seizures Renal/ Medical History: Denies: Hx Peritoneal Dialysis Musculoskeltal Medical History: Reports Hx Arthritis, Reports Hx Musculoskeletal Deformity, Reports Hx Musculoskeletal Trauma Skin Medical History: Reports Hx Eczema Psychiatric Medical History: Reports: Hx Bipolar Disorder Past Surgical History: Reports: Hx Dilation and Curettage - 2, Hx Gynecologic Surgery - D&C, Hx Oral Surgery - Immunizations Immunizations up to date: Yes Hx Diphtheria, Pertussis, Tetanus Vaccination: Yes - 2009 Physical Exam - Vital signs Vitals: Temp Pulse Resp BP Pulse Ox 98.4 F 90 15 126/54 H 99 04/27/19 10:13 04/27/19 10:13 04/27/19 10:13 04/27/19 10:13 04/27/19 10:13 Interpretation: Normal - Abdominal Inspection: Normal Distension: No distension Bowel sounds: Normal Tenderness: Nontender Organomegaly: No organomegaly Course - Re-evaluation Re-evalutation: 04/27/19 10:37 I have greeted and performed a rapid initial assessment of this patient. A comprehensive ED assessment and evaluation of the patient, analysis of test results and completion of the medical decision making process will be conducted by additional ED providers. - Vital Signs Vital signs: Temp Pulse Resp BP Pulse Ox 98.4 F 90 15 126/54 H 99 04/27/19 10:13 04/27/19 10:13 04/27/19 10:13 04/27/19 10:13 04/27/19 10:13
[2019-04-27 11:21] LABS: ABSOLUTE BASOPHILS # (AUTO) 0.1 10^3/uL (0.0-0.2); ABSOLUTE EOSINOPHILS # (AUTO) 0.4 10^3/uL (0.0-0.6); ABSOLUTE LYMPHOCYTES (AUTO) 1.6 10^3/uL (0.5-4.7); ABSOLUTE MONOCYTES (AUTO) 0.5 10^3/uL (0.1-1.4); ABSOLUTE NEUT (AUTO) 3.2 10^3/uL (1.7-8.2); BASOPHILS % (AUTO) 1.3 % (0-2); EOSINOPHILS % (AUTO) 6.8 % (0-6); HEMATOCRIT 37.4 % (36.0-47.0); HEMOGLOBIN 11.9 g/dL (12.0-15.5); LYMPHOCYTES % (AUTO) 27.8 % (13-45); MEAN CORPUSCULAR HEMOGLOBIN 22.3 pg (27.0-33.4); MEAN CORPUSCULAR HGB CONC 31.8 g/dL (32.0-36.0); MEAN CORPUSCULAR VOLUME 70 fl (80-97); MONOCYTES % (AUTO) 8.9 % (3-13); PLATELET COUNT 415 10^3/uL (150-450); RED BLOOD COUNT 5.32 10^6/uL (3.72-5.28); RED CELL DISTRIBUTION WIDTH 20.3 % (11.5-14.0); SEGMENTED NEUTROPHILS % (AUTO) 55.2 % (42-78); TOTAL CELLS COUNTED % (AUTO) 100 %; WHITE BLOOD COUNT 5.9 10^3/uL (4.0-10.5)
--- NOTE | 2019-04-27 11:24 | ER Document Report ---
ED General - General Chief Complaint: Vaginal Bleeding Stated Complaint: VAGINAL BLEEDING Time Seen by Provider: 04/27/19 10:26 TRAVEL OUTSIDE OF THE [place] IN LAST 30 DAYS: No - HPI Notes: Patient is a 29-year-old female who presents complaining of vaginal bleeding that varies from light flow to heavier flow over the past couple months. Patient was given a Depo-Provera shot in early March. She was seen here thereafter for continued bleeding and had an unremarkable work-up aside from an known 15 mm ovarian cyst. Patient states that she does have a history of anemia. She has been seen by [facility] since her previous visit here in the emergency department and they could not find anything wrong at that time. Patient states that she did decline control with [facility] at her last visit. She also had STD testing that was unremarkable. When she does change her pad multiple times per day and has noted blood clots on occasion. Last sexual activity was 2 months ago. She otherwise is able to eat and drink without difficulty. She is urinating normally and having normal bowel movements. No other concerns or complaints. Denies any headache, fever, neck pain, URI, sore throat, chest pain, palpitations, syncope, cough, shortness of breath, wheeze, dyspnea, abdominal pain, nausea/vomiting/diarrhea, urinary retention, dysuria, hematuria, back pain, or rash. - Related Data Allergies/Adverse Reactions: Penicillins Allergy (Verified 04/27/19 10:10) Nausea Past Medical History - Social History Smoking Status: Never Smoker Chew tobacco use (# tins/day): No Frequency of alcohol use: Occasional Drug Abuse: None Family History: CVA, DM, Malignancy Patient has suicidal ideation: No Patient has homicidal ideation: No - Past Medical History Cardiac Medical History: Reports: Hx Hypertension Denies: Hx Coronary Artery Disease, Hx Heart Attack Pulmonary Medical History: Denies: Hx Asthma, Hx Bronchitis, Hx COPD, Hx Pneumonia Neurological Medical History: Denies: Hx Cerebrovascular Accident, Hx Seizures Renal/ Medical History: Denies: Hx Peritoneal Dialysis Musculoskeletal Medical History: Reports Hx Arthritis, Reports Hx Musculoskeletal Deformity, Reports Hx Musculoskeletal Trauma Skin Medical History: Reports Hx Eczema Psychiatric Medical History: Reports: Hx Bipolar Disorder Past Surgical History: Reports: Hx Dilation and Curettage - 2, Hx Gynecologic Surgery - D&C, Hx Oral Surgery - Immunizations Immunizations up to date: Yes Hx Diphtheria, Pertussis, Tetanus Vaccination: Yes - 2009 Review of Systems - Review of Systems -: Yes All other systems reviewed and negative Physical Exam - Vital signs Vitals: Temp Pulse Resp BP Pulse Ox 98.4 F 90 15 126/54 H 99 04/27/19 10:13 04/27/19 10:13 04/27/19 10:13 04/27/19 10:13 04/27/19 10:13 - Notes Notes: PHYSICAL EXAMINATION: GENERAL: Well-appearing, well-nourished and in no acute distress. LUNGS: Breath sounds clear to auscultation bilaterally and equal. No wheezes rales or rhonchi. HEART: Regular rate and rhythm without murmurs, rubs, gallops. ABDOMEN: Soft, nontender, nondistended abdomen. No guarding, no rebound. Normal bowel sounds present. No CVA tenderness bilaterally. : deferred Musculoskeletal: FROM to passive/active. Strength 5+/5. Extremities: No cyanosis, clubbing, or edema b/l. Peripheral pulses 2+. Capillary refill less than 3 seconds. NEUROLOGICAL: Normal speech, normal gait. PSYCH: Normal mood, normal affect. SKIN: Warm, Dry, normal turgor, no rashes or lesions noted. Course - Re-evaluation Re-evalutation: 04/27/19 12:36 Patient is an afebrile, well-hydrated, 29-year-old female who presents to the ED with dysmenorrhea. Vitals are acceptable without any significant tachycardia, tachypnea, or hypoxia. PE is otherwise unremarkable. Patient's abdomen is soft and nontender. Labs are unremarkable with a stable H&H. Patient is nontoxic- appearing is tolerating p.o. without any difficulties. Transvaginal ultrasound was also unremarkable for any acute pathology aside from known small ovarian cyst. No other labs or imaging warranted at this time based on H&P. She had recent evaluation by [facility] including negative STD testing at this time per patient. Low suspicion/risk for acute appendicitis, bowel obstruction, acute cholecystitis, acute cholangitis, perforated diverticulitis, incarcerated hernia, pancreatitis, perforated ulcer, peritonitis, sepsis, pelvic inflammatory disease, ectopic , tubo-ovarian abscess, ovarian torsion, or other systemic emergent condition at this time. Patient is aware that her condition can change from initial presentation and she needs to monitor symptoms closely and seek medical attention if any acute changes. Conservative measures otherwise for symptoms. Recheck with your PCM/OBGYN in 3-5 days. Return to the ED with any worsening/concerning symptoms otherwise as reviewed in discharge. Patient is in agreement. - Vital Signs Vital signs: Temp Pulse Resp BP Pulse Ox 98.4 F 90 15 126/54 H 99 04/27/19 10:13 04/27/19 10:13 04/27/19 10:13 04/27/19 10:13 04/27/19 10:13 - Laboratory Result Diagrams: 04/27/19 10:48 04/27/19 10:48 Laboratory results interpreted by me: 04/27/19 04/27/19 10:48 10:51 RBC 5.32 H Hgb 11.9 L MCV 70 L MCH 22.3 L MCHC 31.8 L RDW 20.3 H Eosinophils % 6.8 H Urine Blood LARGE H Urine Urobilinogen 2.0 H Discharge - Discharge Clinical Impression: Dysmenorrhea Condition: Stable Disposition: HOME, SELF-CARE Instructions: Dysmenorrhea ([facility]) Additional Instructions: Maintain fluid intake Proper hygienic technique Keep the skin clean Tylenol/ibuprofen as needed F/u with your PCM/OBGYN in 3-5 days for a recheck Return to the ED with any development of RODRIGUEZ/fever, trouble with vision, eye redness, worsening pain, urethral discharge, urinary retention, blood in the urine, flank pain, abdominal pain, n/v, Chest Pain, shortness of breath, joint pains, trouble breathing, or any other worsening/concerning symptoms as needed otherwise. Forms: Elevated Blood Pressure Referrals: [facility] [Provider Group] - Follow up in 3-5 days
[2019-04-27 11:26] LABS: APPEARANCE,URINE SLIGHTLY-CLOUDY; BILIRUBIN,URINE NEGATIVE (NEGATIVE); COLOR,URINE YELLOW; GLUCOSE, URINE NEGATIVE (NEGATIVE); KETONES,URINE NEGATIVE (NEGATIVE); LEUKOCYTE ESTERASE,URINE NEGATIVE (NEGATIVE); NITRITE,URINE NEGATIVE (NEGATIVE); PROTEIN,URINE NEGATIVE (NEGATIVE); URINE SPECIFIC GRAVITY 1.027
[2019-04-27 11:31] LABS: ALBUMIN 4.3 g/dL (3.5-5.0); ALKALINE PHOSPHATASE 72 U/L (38-126); ANION GAP 10 (5-19); ASPARTATE AMINO TRANSFERASE 18 U/L (14-36); BILIRUBIN,DIRECT 0.2 mg/dL (0.0-0.4); BILIRUBIN,TOTAL 0.5 mg/dL (0.2-1.3); BLOOD UREA NITROGEN 15 mg/dL (7-20); CALCIUM 9.6 mg/dL (8.4-10.2); CARBON DIOXIDE 26 mmol/L (22-30); CHLORIDE 104 mmol/L (98-107); GLUCOSE 87 mg/dL (75-110); POTASSIUM 4.1 mmol/L (3.6-5.0); TOTAL PROTEIN 7.5 g/dL (6.3-8.2)
--- NOTE | 2019-04-27 12:07 | RADIOLOGY REPORT (SQ) ---
EXAM DESCRIPTION: U/S NON OB PEL TV W/DOPPLER COMPLETED DATE/TIME: 04/27/2019 11:54 am REASON FOR STUDY: bleeding COMPARISON: 04/10/2019 TECHNIQUE: Dynamic and static grayscale images acquired of the pelvis via transvaginal approach and recorded on PACS. Additional selected color Doppler and spectral images recorded. LIMITATIONS: None. FINDINGS: UTERUS: Contour normal. No mass. ENDOMETRIAL STRIPE: No focal or generalized thickening. No masses. CERVIX: No nabothian cysts. RIGHT OVARY AND DOPPLER: Normal size. No worrisome masses. Normal arterial vascular flow without evid ence for torsion. LEFT OVARY AND DOPPLER: Normal size. Left ovarian cyst slightly larger. Now 2 cm. . . Normal elena rial vascular flow without evidence for torsion. FREE FLUID: None noted. OTHER: No other significant finding. MEASUREMENTS: UTERUS: 9 cm. ENDOMETRIAL STRIPE: 8.2 mm. RIGHT OVARY: 3.4 cm. LEFT OVARY: 3.4 cm. IMPRESSION: Small left ovarian cyst slightly larger than previous. Otherwise normal study. COMMENT: Followup of asymptomatic benign ovarian cysts detected by ultrasound in PREMENOPAUSAL alia ents Simple cyst: *? 5 cm: no followup *Note: If cyst is clinically symptomatic or otherwise concerning, other followup may be warranted. Based on recommendations of the Society for Radiologists in Ultrasound Consensus Conference Statement 2010 on management of asymptomatic ovarian and other adnexal cysts imaged at ultrasound. of asymptomatic ovarian and other adnexal cysts imaged at ultrasound. TECHNICAL DOCUMENTATION: JOB ID: [id number] [employer]- All Rights Reserved Rev-01/25 Reading location - IP/workstation name: [email or web address]
[2019-04-27 12:46] VITALS: BP 128/68
== END 2019-04-27 12:46 | disposition home or self-care (01) ==
LOC: ER 10:10
DX: N93.8 Other specified abnormal uterine and vaginal bleeding (principal); I10 Essential (primary) hypertension
CPT/HCPCS: 36415; 76830; 80053; 81001; 81025; 85025; 93976; 99284

== ENCOUNTER 2019-09-12 10:15 | Emergency (ER) | payer SELFPAY ==
[2019-09-12 10:50] VITALS: BP 136/70
[2019-09-12] MEDS ORDERED: AZITHROMYCIN 250 MG TABLET PO ONE (11:29)
--- NOTE | 2019-09-12 11:32 | ER Document Report ---
HPI - HPI Time Seen by Provider: 09/12/19 11:24 Pain Level: Denies Context: Patient is a 29-year-old female who presents to the emergency department with a chief complaint of sinus congestion and purulent rhinorrhea. Patient had her symptoms for the past 2 weeks. She states that she had more of a clear/green drainage a week ago, but the past couple of days when she started using fluticasone, she ended up having more purulent drainage. Patient has history of allergies. She has history of sinus congestion in the past. - CONSTITUTIONAL Constitutional: DENIES: Fever - EENT EENT: REPORTS: Nasal Drainage-Clear, Nasal Drainage-Purulent, Congestion. DENIES: Sore Throat, Ear Pain, Eye problems - NEURO Neurology: REPORTS: Headache. DENIES: Weakness - CARDIOVASCULAR Cardiovascular: DENIES: Chest pain - RESPIRATORY Respiratory: REPORTS: Coughing - REPRODUCTIVE Reproductive: DENIES: : - MUSCULOSKELETAL Musculoskeletal: DENIES: Extremity pain - DERM Skin Color: Normal Skin Problems: None Past Medical History - Social History Smoking Status: Never Smoker Chew tobacco use (# tins/day): No Frequency of alcohol use: None Drug Abuse: None Family History: CVA, DM, Malignancy Patient has suicidal ideation: No Patient has homicidal ideation: No - Past Medical History Cardiac Medical History: Reports: Hx Hypertension Denies: Hx Coronary Artery Disease, Hx Heart Attack Pulmonary Medical History: Denies: Hx Asthma, Hx Bronchitis, Hx COPD, Hx Pneumonia Neurological Medical History: Denies: Hx Cerebrovascular Accident, Hx Seizures Renal/ Medical History: Denies: Hx Peritoneal Dialysis Musculoskeletal Medical History: Reports Hx Arthritis, Reports Hx Musculoskeletal Deformity, Reports Hx Musculoskeletal Trauma Skin Medical History: Reports Hx Eczema Psychiatric Medical History: Reports: Hx Bipolar Disorder Past Surgical History: Reports: Hx Dilation and Curettage - 2, Hx Gynecologic Surgery - D&C, Hx Oral Surgery - Immunizations Immunizations up to date: Yes Hx Diphtheria, Pertussis, Tetanus Vaccination: Yes - 2009 Vertical Provider Document - CONSTITUTIONAL Agree With Documented VS: Yes Exam Limitations: No Limitations General Appearance: No Apparent Distress - INFECTION CONTROL TRAVEL OUTSIDE OF THE [place] IN LAST 30 DAYS: No - HEENT HEENT: Atraumatic, Normocephalic, PERRLA. negative: Pharyngeal Exudate, Pharyngeal Tenderness, Pharyngeal Erythema, Tympanic Membrane Red, Tympanic Membrane Bulging Notes: Tenderness noted to maxillary and frontal sinuses - CARDIOVASCULAR Cardiovascular: Regular Rate Pulses: Normal: Radial - GI/ABDOMEN Gastrointestinal: Abdomen Soft, Abdomen Non-Tender - MUSCULOSKELETAL/EXTREMETIES Musculoskeletal/Extremeties: FROM - NEURO Level of Consciousness: Awake, Alert, Appropriate - DERM Integumentary: Warm, Dry, No Rash Course - Re-evaluation Re-evalutation: 09/12/19 11:30 Patient's history and physical exam is consistent with acute sinusitis. She will be started on azithromycin, she is allergic to penicillin. She will follow-up with her primary care provider. Follow-up precautions were given. Verbal discharge instructions were given to the patient. They verbalized understanding. They are stable for discharge. - Vital Signs Vital signs: Temp Pulse Resp BP Pulse Ox 99.8 F 85 18 136/70 H 99 09/12/19 10:45 09/12/19 10:45 09/12/19 10:45 09/12/19 10:45 09/12/19 10:45 Discharge - Discharge Clinical Impression: Acute sinusitis Qualifiers: Sinusitis location: pansinusitis Recurrence: not specified as recurrent Qualified Code(s): J01.40 - Acute pansinusitis, unspecified Condition: Stable Disposition: HOME, SELF-CARE Additional Instructions: He was seen today in the emergency department for sinus congestion. You are being started on antibiotics. Please take all your antibiotics as prescribed. Please continue your fluticasone nose spray. Follow-up with a primary care provider in regards to this visit. Prescriptions: Azithromycin [Zithromax 250 mg Tablet] 250 mg PO DAILY #4 tablet Referrals: BOBBY WINSLOW FNP [NURSE PRACTITIONER] - Follow up in 1 week
== END 2019-09-12 11:35 | disposition home or self-care (01) ==
LOC: ER 10:15
DX: J01.40 Acute pansinusitis, unspecified (principal); I10 Essential (primary) hypertension
CPT/HCPCS: 99283